=== PATIENT | male | born 1940 | race Caucasian/White ===

== ENCOUNTER 2020-07-12 12:48 | Emergency (ER) | payer MEDICARE, SELFPAY ==
[2020-07-12 13:01] VITALS: BP 167/68; PULSE 85; RESP 18; TEMP 36.7; O2SAT 98; BMI 23.5
--- NOTE | 2020-07-12 13:10 | CT_ITS ---
EXAMINATION CT CERVICAL SPINE WITHOUT IV CONTRAST CLINICAL INFORMATION: 80-year-old male patient with back pain. COMPARISON: None. TECHNIQUE: Multidetector helical CT acquisition of the cervical spine was obtained without IV contrast. Multiplanar reformats were acquired and utilized for image interpretation. This CT examination was performed using dose optimization techniques as appropriate, variously including the following: *Automated exposure control *Adjustment of mA and/or kV according to patient size (this includes techniques or standardized protocols for targeted exams where dose is matched to indication/reason for exam; i.e. extremities or head) *Use of iterative reconstruction technique DLP: 352 mGy-cm. FINDINGS: There is mild retrolisthesis of the vertebral body of C5 and C6 and C6 and C7. Significant degenerative disc disease is present at the levels of C4-C5 and C5-C6 with juxta-articular sclerotic endplates and marginal spur formation. Significant posterior spurs are seen the levels of C4-C5 C5-C6. There is an endplate depression fracture involving the anterior superior endplate of the vertebral body at T2, of unknown age. Facet arthropathy is present at the levels from C4-T1. Degenerative changes of the uncovertebral joints are particularly advanced from the levels of C5-C7. There is no acute fracture and there is no acute subluxation. The craniocervical and atlantoaxial articulations are normal. There is no prevertebral soft tissue swelling. Calcific plaques are present at the levels of both carotid artery bifurcations. No other significant soft tissue abnormality within the neck. There is bilateral apical fibrocalcific thickening and increased interstitial opacities in the lung apices right greater than left. CT/CT cervical spine wo con IMPRESSION: 1. Significant cervical spondylosis and degenerative disc disease as described. 2. Partial compression fracture involving the vertebral body at T2, unknown age. 3. Due to the posterior osteophytes, there is potential relative spinal stenosis at C5-C6.
[2020-07-12 13:27] LABS: Basophils Percent Auto 0.3 % (0-2); Eosinophils Absolute Auto 0.1 X10*3/uL (0.0-0.4); Eosinophils Percent Auto 1.5 % (0-4); Hematocrit 35.5 % (42-52); Hemoglobin 11.5 g/dl (14.0-18.0); Imm Gran Abs Auto 0.02 X10*3/uL (0.00-0.03); Imm Gran Pct Auto 0.3 % (0.0-0.4); Lymphocytes Absolute Auto 1.3 X10*3/uL (1.2-4.9); Lymphocytes Percent Auto 16.1 % (20-40); Mean Corpuscular HGB Conc 32.4 g/dl (31.0-36.0); Mean Corpuscular Volume 89.4 fL (80-98); Mean Platelet Volume 9.4 fL (9.4-12.4); Monocytes Absolute Auto 0.8 X10*3/uL (0.1-1.2); Monocytes Percent Auto 10.3 % (2-11); Neutrophils Absolute Auto 5.7 X10*3/uL (2.0-8.3); Neutrophils Percent Auto 71.5 % (45-73); Platelet Count 217 X10*3/uL (160-400); Red Blood Count 3.97 X10*6/uL (4.60-5.80); Red Cell Distribution Width 14.1 % (11.0-16.0)
[2020-07-12 13:28] LABS: MANUAL DIFF FLAG NO
[2020-07-12 13:32] LABS: INTERNATIONAL NORM RATIO 1.1 (0.9-1.1); Prothrombin Time 12.8 SEC (10.8-13.0)
[2020-07-12 13:34] LABS: Partial Thromboplastin Time 36.9 SEC (24.1-38.0)
--- NOTE | 2020-07-12 13:36 | ED_ITS ---
HPI - Back Pain/Injury General Chief Complaint: Back Pain/Injury Stated Complaint: back pain Time Seen by Provider: 07/12/20 13:09 Source: patient Mode of arrival: ambulatory Limitations: no limitations History of Present Illness HPI Narrative: 80-year-old male presenting ambulatory via triage with past medical history significant for prostate CA status post radiation, T12 compression fracture status post ? Vertebroplasty presents today with complaint of low back pain ongoing for past 1 and half week pain is positional and hurts when he gets out of bed and does certain activities. Denies any fever or chills. No headache. No lower extremity weakness. He does report he has chronic prostate problems and sometimes will have slight difficulty with urination but no discharge. No rectal pain. He did call his spine doctor as [facility] that an appointment formed for August 01 however given the continued pain he came here. Related Data Previous Rx's Medication Instructions Recorded levofloxacin 500 mg PO DAILY #10 tab 07/12/20 lidocaine 1 patch TOPICAL Q24H PRN #10 ea 07/12/20 naproxen 500 mg PO BID PRN #10 tab 07/12/20 Allergies Allergy/AdvReac Type Severity Reaction Status Date / Time No Known Allergies Allergy Unverified 05/04/20 19:32 [No Known Allergies*] Review of Systems Review of Systems: Constitutional: No Weight loss, No Fever, No Chills, No Night Sweats, No Fatigue, No Malaise ENT/Mouth: No Hearing loss, No Ear Pain, No Nasal Congestion, No Sinus Pain, No Hoarseness, No sore throat, No Rhinorrhea, No Swallowing Difficulty Eyes: No Eye Pain, No Swelling, No Redness, No Foreign Body, No Discharge, No Vision Changes Cardiovascular: No Chest Pain, No SOB, No Dyspnea on Exertion, No Orthopnea, No Edema, No Palpitations Respiratory: No Cough, No Sputum, No Wheezing, No Smoke Exposure, No Dyspnea Gastrointestinal: No Nausea, No Vomiting, No Diarrhea, No Constipation, No abdominal Pain, No Hematochezia, No Melena Genitourinary: no irregular bleeding, No Dysuria, No Urinary Frequency, No Hematuria, No Urinary Incontinence Musculoskeletal: No joint pain, No Myalgias, No Joint Swelling, + back pain Skin: No Skin Lesions, No rash Neuro: No Weakness, No Numbness, No Paresthesias, No Loss of Consciousness, No Dizziness, No Headache Psych: No Anxiety/Panic, No Depression, No SI/HI/AH/VH, No Social Issues Heme/Lymph: No Bruising, No Bleeding,No Lymphadenopathy Endocrine: No Polyuria, No Polydipsia, No Temperature Intolerance Yes all other systems are reviewed and are negative [facility] Past Medical History Medical History (Updated 07/13/20 @ 00:00 by Jak Padilla) Constipation Disc herniation Nasal sinus polyp Prostate cancer Syncope Surgical History (Updated 07/12/20 @ 13:11 by Marina Pack) History of back surgery History of left hip replacement Hx of tonsillectomy Social History Social History Alcohol intake: current Alcohol intake frequency: holidays/special occasions only Alcohol type: wine Smoking Status: Former smoker Smoked in Last 30 Days: No Use of substances other than those prescribed or required for medical reasons: No Advance Directives: No Advance Directives Information Provided: Yes Physical Exam Vital Signs: Vital Signs: Last Vital Signs Temp 98.2 F 07/12/20 16:40 Pulse 68 07/12/20 16:40 Resp 18 07/12/20 16:40 BP 158/82 H 07/12/20 16:40 Pulse Ox 99 07/12/20 16:40 Body Mass Index 23.5 Reviewed Const: General: cooperative and healthy appearing; No acute distress or intoxicated appearing Nutritional Appearance: average body habitus Orientation/consciousness: patient oriented x3 HENMT: Head: Yes normal to inspection Ears: hearing grossly normal bilaterally Eyes: General: appearance normal, both eyes and all related structures Visual Estrada: normal visual estrada by confrontation Neck: Neck: Yes normal visual inspection, No positive Brudzinski's sign, No positive Kernig's sign and No tender Thyroid: Thyroid normal Chest: Chest palpation & inspection: normal inspection of the chest Resp: Effort & Inspection: normal respiratory effort Cardio: Jugular venous distension: no JVD GI: Inspection: Yes normal to inspection Percussion: Yes normal to percussion Auscultation: normal bowel sounds : General: Yes no CVA tenderness Back/Spine/Pelvis: Other: Bilateral lower lumbar region paraspinal muscle tenderness. No midline, step-offs. He does have a old healed surgical lisette in the lumbar spine area. Back: no CVA tenderness Cervical Spine: No step off deformity Thoracic/Lumbar Spine: straight leg raise negative bilaterally and No tilt present Skin: General skin exam: no rashes or lesions noted Neuro: General: patient oriented x3 Extrem: General: Yes normal to inspection MDM - Back Pain/Injury MDM Narrative Medical decision making narrative: Low back pain seems to be chronic in nature. CT without any specific findings to explain this. Noted old T12 fracture. This was noted on prior study in 2019. No recent fall or injury. No sinus symptoms saddle anesthesia. Does have history of prostate CA did have some slight dysuria urine appears to be infected. No symptoms to suggest prostatitis. Patient will be given broad-spectrum antibiotic IV Levaquin and advised to foll ow-up with urology and [facility]. Patient agreeable and thankful. Pain essentially resolved after Tylenol and lidocaine patch. Out of bed ambulatory dressed himself caring a back. Differential Diagnosis Differential diagnosis: Likely strain of lumbar region; Unlikely lumbar radicul opathy, sciatica, renal colic, pyelonephritis, thoracic back pain, AAA and discitis Medical Records Attestation: I reviewed the patient's medical records. Lab Data Attestation: I reviewed the patient's lab results. Result diagrams: 07/12/20 13:21 07/12/20 13:21 Labs: Lab Results 07/12/20 07/12/20 07/12/20 Range/Units 13:21 13:21 13:21 WBC 8.0 (4.8-10.8) X10*3/uL RBC 3.97 L (4.60-5.80) X10*6/uL Hgb 11.5 L (14.0-18.0) g/dl Hct 35.5 L (42-52) % MCV 89.4 (80-98) fL MCH 29.0 (27.0-33.0) pg MCHC 32.4 (31.0-36.0) g/dl RDW 14.1 (11.0-16.0) % Plt Count 217 (160-400) X10*3/uL MPV 9.4 (9.4-12.4) fL Immature Gran % (Auto) 0.3 (0.0-0.4) % Neut % (Auto) 71.5 (45-73) % Lymph % (Auto) 16.1 L (20-40) % [place] % (Auto) 10.3 (2-11) % Eos % (Auto) 1.5 (0-4) % Baso % (Auto) 0.3 (0-2) % Lymph # (Auto) 1.3 (1.2-4.9) X10*3/uL [place] # (Auto) 0.8 (0.1-1.2) X10*3/uL Eos # (Auto) 0.1 (0.0-0.4) X10*3/uL Baso # (Auto) 0.0 (0.0-0.2) X10*3/uL Abs Immat Gran (auto) 0.02 (0.00-0.03) X10*3/uL Absolute Neuts (auto) 5.7 (2.0-8.3) X10*3/uL Absolute Nucleated RBC 0.000 (0.0-0.012) X10*3/uL Nucleated RBC % (auto) 0.0 (0.0-0.2) /100WBC PT 12.8 (10.8-13.0) SEC INR 1.1 (0.9-1.1) APTT 36.9 (24.1-38.0) SEC Sodium 135 (135-145) mmol/L Potassium 4.6 (3.3-5.1) mmol/l Chloride 103 (96-108) mmol/L Carbon Dioxide 23 (22-29) mmol/L Anion Gap 14 (12-20) BUN 28 H (9-16) mg/dL Creatinine 1.40 (0.5-1.4) mg/dL Estim Creat Clear Calc 45.5 Estimated GFR 49 Random Glucose 106 (60-115) mg/dL Calcium 8.6 (8.4-10.2) mg/dL Total Bilirubin 0.2 (0.0-1.0) mg/dL AST 24 (5-37) U/L ALT 19 (0-40) U/L Alkaline Phosphatase 82 (39-117) U/L Total Protein 7.1 (6.5-8.0) g/dL Albumin 3.7 (3.5-5.0) g/dL Urine Color Urine Appearance Urine pH (5.0-8.0) Ur Specific [place] (1.005-1.025) Urine Protein (NEG-TRACE) MG/DL Urine Glucose (UA) (NEG) MG/DL Urine Ketones (NEG) MG/DL Urine Blood (NEG) Urine Nitrite (NEG) Ur Leukocyte Esterase (NEG) Urine RBC (0) /HPF Urine WBC (0-4) /HPF Ur Squamous Epith Cells /LPF Urine Bacteria /LPF Coronavirus (PCR) (Negative) Influenza Type A (PCR) (Negative) Influenza Type B (PCR) (Negative) RSV RNA Qual (PCR) (Negative) 07/12/20 07/12/20 Range/Units 13:50 15:46 WBC (4.8-10.8) X10*3/uL RBC (4.60-5.80) X10*6/uL Hgb (14.0-18.0) g/dl Hct (42-52) % MCV (80-98) fL MCH (27.0-33.0) pg MCHC (31.0-36.0) g/dl RDW (11.0-16.0) % Plt Count (160-400) X10*3/uL MPV (9.4-12.4) fL Immature Gran % (Auto) (0.0-0.4) % Neut % (Auto) (45-73) % Lymph % (Auto) (20-40) % [place] % (Auto) (2-11) % Eos % (Auto) (0-4) % Baso % (Auto) (0-2) % Lymph # (Auto) (1.2-4.9) X10*3/uL [place] # (Auto) (0.1-1.2) X10*3/uL Eos # (Auto) (0.0-0.4) X10*3/uL Baso # (Auto) (0.0-0.2) X10*3/uL Abs Immat Gran (auto) (0.00-0.03) X10*3/uL Absolute Neuts (auto) (2.0-8.3) X10*3/uL Absolute Nucleated RBC (0.0-0.012) X10*3/uL Nucleated RBC % (auto) (0.0-0.2) /100WBC PT (10.8-13.0) SEC INR (0.9-1.1) APTT (24.1-38.0) SEC Sodium (135-145) mmol/L Potassium (3.3-5.1) mmol/l Chloride (96-108) mmol/L Carbon Dioxide (22-29) mmol/L Anion Gap (12-20) BUN (9-16) mg/dL Creatinine (0.5-1.4) mg/dL Estim Creat Clear Calc Estimated GFR Random Glucose (60-115) mg/dL Calcium (8.4-10.2) mg/dL Total Bilirubin (0.0-1.0) mg/dL AST (5-37) U/L ALT (0-40) U/L Alkaline Phosphatase (39-117) U/L Total Protein (6.5-8.0) g/dL Albumin (3.5-5.0) g/dL Urine Color YELLOW Urine Appearance TURBID Urine pH 6.0 (5.0-8.0) Ur Specific [place] 1.020 (1.005-1.025) Urine Protein TRACE (NEG-TRACE) MG/DL Urine Glucose (UA) NEG (NEG) MG/DL Urine Ketones NEG (NEG) MG/DL Urine Blood 2+ H (NEG) Urine Nitrite NEG (NEG) Ur Leukocyte Esterase 3+ H (NEG) Urine RBC 5-9 H (0) /HPF Urine WBC 76-150 H (0-4) /HPF Ur Squamous Epith Cells NONE /LPF Urine Bacteria 1+ /LPF Coronavirus (PCR) NEGATIVE (Negative) Influenza Type A (PCR) NEGATIVE (Negative) Influenza Type B (PCR) NEGATIVE (Negative) RSV RNA Qual (PCR) NEGATIVE (Negative) Discharge Plan Discharge Clinical Impression: Strain of lumbar region, Acute UTI (urinary tract infection) Patient Disposition: Home, Self-Care Instructions: Acute Low Back Pain (ED), Urinary Tract Infection in Older Adults (ED) Prescriptions: New lidocaine 4 % adhesive patch,medicated 1 patch topical Q24H PRN (Reason: pain) Qty: 10 RF: 0 levofloxacin 500 mg tablet 500 mg PO DAILY Qty: 10 RF: 0 naproxen 500 mg tablet 500 mg PO BID PRN (Reason: pain) Qty: 10 RF: 0 Referrals: Tiana Newman MD [Primary Care Provider] - 1 week iVshal Tadeo III, MD [Physician] - 1 week Interventions: ED Discharge Assessment Last Done: 07/12/20 17:14 Discharge Date/Time: 07/12/20 17:15
[2020-07-12] MEDS: Acetaminophen 325 MG TABLET 975 MG PO (13:44)
[2020-07-12] MEDS: Lidocaine 4 % Patch ADH..PATCH 1 PATCH TRANSDERMA (13:44)
[2020-07-12] MEDS: 0.9 % Sodium Chloride 500 ML 1000 ML IV (13:44)
--- NOTE | 2020-07-12 13:58 | PC.NURSE ---
iv inserted, labs drawn, pt medicated per order, ivf running per order, covid swab performed, will continue to monitor.
[2020-07-12 14:36] LABS: Alanine Aminotransferase 19 U/L (0-40); Albumin Level 3.7 g/dL (3.5-5.0); Alkaline Phosphatase 82 U/L (39-117); Anion Gap 14 (12-20); Aspartate Amino Transferase 24 U/L (5-37); Bilirubin Total 0.2 mg/dL (0.0-1.0); Blood Urea Nitrogen 28 mg/dL (9-16); Calcium 8.6 mg/dL (8.4-10.2); Carbon Dioxide 23 mmol/L (22-29); Chloride 103 mmol/L (96-108); Creatinine Clr Calc Pharmacy 45.5; Estimated Glomerular Filt Rate 49; Glucose Random 106 mg/dL (60-115); Potassium 4.6 mmol/l (3.3-5.1); Sodium 135 mmol/L (135-145); Total Protein 7.1 g/dL (6.5-8.0)
[2020-07-12 14:40] LABS: Influenza A PCR NEGATIVE (Negative); Influenza B PCR NEGATIVE (Negative); Resp Syncy Virus RNA Qual PCR NEGATIVE (Negative); SARS COV2 PCR INHOUSE NEGATIVE (Negative)
--- NOTE | 2020-07-12 14:41 | PC.NURSE ---
pt aware to ring to provide urine sample as he is unable to urinate at this time
--- NOTE | 2020-07-12 15:31 | CT_ITS ---
EXAMINATION: CT ABDOMEN AND PELVIS WITHOUT CONTRAST CLINICAL INFORMATION: Abdominal pain and back pain. History of Prostate and bladder cancer COMPARISON: Previous KUB June [address] scan of the abdomen and pelvis most recent May 2008 TECHNIQUE: Multidetector volumetric imaging was performed from the superior aspect of the liver through the pubic symphysis. Sagittal and coronal reformatted images were obtained on the technologist's workstation. This CT examination was performed using dose optimization techniques as appropriate, variously including the following: *Automated exposure control *Adjustment of mA and/or kV according to patient size (this includes techniques or standardized protocols for targeted exams where dose is matched to indication/reason for exam; i.e. extremities or head) *Use of iterative reconstruction technique DLP: 567 mGy-cm FINDINGS: LUNG BASES: There are increased interstitial markings seen at the lung bases. LIVER, GALLBLADDER, AND BILIARY TREE: The liver is normal in size, shape, and attenuation. No focal hepatic lesion or biliary ductal dilatation is present. The gallbladder is unremarkable with no evidence of radiopaque gallstones, gallbladder wall thickening, or obvious pericholecystic inflammatory changes. PANCREAS: Unremarkable. SPLEEN: Unremarkable. ADRENAL GLANDS: Unremarkable. KIDNEYS AND URETERS: The kidneys are normal in size, shape, and attenuation. No hydronephrosis, hydroureter, or calculi seen. No perinephric stranding. BLADDER: Not well visualized due to artifact from left hip replacement. There is bladder wall thickening. GASTROINTESTINAL TRACT: There is stool seen throughout the colon suggestive of constipation. Small and large bowel are otherwise unremarkable. The appendix is unremarkable. There is an esophageal hernia. ABDOMINAL WALL: There is a right inguinal hernia containing fat. There is a small umbilical hernia containing fat. LYMPH NODES: There are no enlarged lymph nodes. There is no ascites. VASCULAR: There is evidence of atherosclerotic disease. There is ectasia of the distal right common iliac artery measuring 1 6 cm. PELVIC VISCERA: Not well visualized due to artifact from left hip replacement. There are radiation seeds in the prostate gland. OSSEOUS STRUCTURES: There is a left hip replacement that appears unchanged.. There are degenerative changes of the spine. There are degenerative changes of the right hip joint. There is a severe T12 vertebral body compression fracture. This does not appear acute but is new in the interval from [address]/CT abdomen pelvis wo con IMPRESSION: Prostate gland and bladder not well evaluated due to artifact from left hip replacement. There is diffuse bladder wall thickening. There are radiation seeds in the prostate gland. Stool throughout the colon suggestive of constipation. Moderate esophageal hernia. 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 T12 vertebral body compression fracture. This is new in the interval from 2018 exam but does not appear acute.
--- NOTE | 2020-07-12 15:35 | PC.NURSE ---
urine obtained, pt transported to ct scan
--- NOTE | 2020-07-12 15:49 | PC.NURSE ---
pt returned from ct scan
[2020-07-12 15:55] LABS: Glucose Urine UA NEG (NEG); Leukocyte Esterase Urine 3+ (NEG); Nitrite Urine NEG (NEG); Urine Blood 2+ (NEG); Urine Ketones NEG (NEG); Urine Protein TRACE MG/DL (NEG-TRACE)
[2020-07-12 15:59] LABS: Appearance Urine TURBID; Color Urine YELLOW
[2020-07-12 16:13] LABS: Bacteria Urine 1+ /LPF
[2020-07-12 16:40] VITALS: BP 158/82; PULSE 68; RESP 18; TEMP 36.8; O2SAT 99
== END 2020-07-12 17:15 | disposition home or self-care (01) ==
PROVIDERS: Nurse Practitioner Primary Care; Emergency Provider Internal Medicine; PCP Internal Medicine
DX: S39.012A Strain of muscle, fascia and tendon of lower back, initial encounter (principal); N39.0 Urinary tract infection, site not specified; R05 Cough; M54.2 Cervicalgia; X58.XXXA Exposure to other specified factors, initial encounter; Y93.9 Activity, unspecified; Y92.9 Unspecified place or not applicable; Y99.9 Unspecified external cause status; Z20.828 Contact with and (suspected) exposure to other viral communicable diseases; Z79.899 Other long term (current) drug therapy; Z87.891 Personal history of nicotine dependence
CPT/HCPCS: 0241U; 36415; 72125; 74176; 80053; 81001; 85025; 85610; 85730; 87086; 99284

== ENCOUNTER 2020-07-17 09:55 | Emergency (ER) | payer MEDICARE, SELFPAY ==
--- NOTE | 2020-07-17 11:19 | XR_ITS ---
EXAMINATION: XR ABDOMEN KUB CLINICAL INDICATION: Constipation COMPARISON: CT abdomen and pelvis noncontrast 07/12/2020 TECHNIQUE: AP x2 views of the abdomen. FINDINGS: There is moderate stool seen right, transverse, and proximal to mid descending colon. There is no rectal fecal impaction. No gaseous dilatation of bowel or abnormal collections of gas. The visualized lung bases are clear. There are degenerative changes lumbosacral spine. Old T12 vertebral compression again seen and left hip replacement. XR/XR abdomen 1V IMPRESSION: 1. Moderate stool right, transverse, and proximal to mid descending colon. 2. No gaseous dilatation of bowel. No rectal fecal impaction.
[2020-07-17 11:39] LABS: Glucose Urine UA NEG (NEG); Leukocyte Esterase Urine NEG (NEG); Nitrite Urine NEG (NEG); PH 6.5 (5.0-8.0); Urine Blood 1+ (NEG); Urine Ketones NEG (NEG); Urine Protein NEG (NEG-TRACE)
[2020-07-17 11:41] LABS: Appearance Urine HAZY; Color Urine YELLOW
[2020-07-17 11:48] LABS: Squamous Epithelial Cell Urine 1+ /LPF
[2020-07-17 12:20] VITALS: BP 144/97; PULSE 67; RESP 16; TEMP 36.5; O2SAT 100; BMI 24.3
--- NOTE | 2020-07-17 12:22 | ED_ITS ---
HPI - General Adult General Chief complaint: Back Pain/Injury Stated complaint: BACK PAIN,MED REACTION Time Seen by Provider: 07/17/20 11:10 Source: patient Mode of arrival: ambulatory Limitations: no limitations History of Present Illness HPI narrative: Patient seen on the 12 of July for back pain which seem chronic in nature he had a workup that was consistent with a UTI he does have history of prostate CA status post radiation at [facility] October of this year was last treatment and had a resection of a bladder mass, history of T12 compression fracture. During last visit he was given Levaquin for his antibiotics lidocaine patch naproxen for his back pain His back pain is essentially well managed and no complaints related today however he has been taking the antibiotics for his UTIs given him nausea in addition he reports that he has been constipated which she has a history of ever since having chemo. There is no nausea or vomiting. No abdominal pain. No flank pain. No fever chills. Onset (ago): day(s) Relieving factors: none Treatments prior to arrival: none Related Data Previous Rx's Medication Instructions Recorded lidocaine 1 patch TOPICAL Q24H PRN #10 ea 07/12/20 naproxen 500 mg PO BID PRN #10 tab 07/12/20 cefdinir 300 mg PO Q12H #14 cap 07/17/20 docusate sodium [Colace] 100 mg PO DAILY #30 cap 07/17/20 polyethylene glycol 3350 [Miralax] 17 g PO BID PRN #238 g 07/17/20 Allergies Allergy/AdvReac Type Severity Reaction Status Date / Time No Known Allergies Allergy Unverified 05/04/20 19:32 [No Known Allergies*] Review of Systems 2 Review of Systems: Constitutional: No Weight loss, No Fever, No Chills, No Night Sweats, No Fatigue, No Malaise ENT/Mouth: No Hearing loss, No Ear Pain, No Nasal Congestion, No Sinus Pain, No Hoarseness Eyes: No Eye Pain, No Swelling, No Redness, No Foreign Body, No Discharge, No Vision Changes Cardiovascular: No Chest Pain, No SOB, No Dyspnea on Exertion, No Orthopnea, No Edema, No Palpitations Respiratory: No Cough, No Sputum, No Wheezing, No Smoke Exposure, No Dyspnea Gastrointestinal: As noted in HPI, no bleeding Genitourinary: No Dysuria, No Urinary Frequency, No Hematuria Musculoskeletal: No joint pain, No Myalgias, No Joint Swelling Skin: No Skin Lesions, No rash Neuro: No Weakness, No Numbness, No Paresthesias, No Loss of Consciousness, No Dizziness, No Headache Psych: No Social Issues Heme/Lymph: No Bruising, No Bleeding,No Lymphadenopathy Endocrine: No Temperature Intolerance Yes all other systems are reviewed and are negative [facility] Past Medical History Medical History (Updated 07/18/20 @ 00:00 by Jak Padilla) Constipation Disc herniation Nasal sinus polyp Prostate cancer Syncope Surgical History History of back surgery History of left hip replacement Hx of tonsillectomy Social History Social History Alcohol intake: current Alcohol intake frequency: holidays/special occasions only Alcohol type: wine Smoking Status: Former smoker Physical Exam Vital Signs: Vital Signs: Last Vital Signs Temp 97.7 F 07/17/20 12:20 Pulse 67 07/17/20 12:20 Resp 16 07/17/20 12:20 BP 144/97 H 07/17/20 12:20 Pulse Ox 100 07/17/20 12:20 Body Mass Index 24.3 Reviewed Const: General: cooperative and healthy appearing; No acute distress or intoxicated appearing Nutritional Appearance: average body habitus Orientation/consciousness: patient oriented x3 Chest: Chest palpation & inspection: normal inspection of the chest Resp: Effort & Inspection: normal respiratory effort Cardio: Jugular venous distension: no JVD GI: Inspection: Yes normal to inspection Percussion: Yes normal to percussion Auscultation: normal bowel sounds : General: Yes no CVA tenderness Back/Spine/Pelvis: Back: no CVA tenderness Skin: General skin exam: no rashes or lesions noted Neuro: General: patient oriented x3 Extrem: General: Yes normal to inspection Medical Decision Making MDM Narrative Medical decision making narrative: Will stop Levaquin started on Ceftin for additional 7 days b.i.d.. Recent culture for 2nd culture. Will follow up with Urology. Home care return instructions provided. Whilst on bowel regimen for constipation. Exam benign. Vitals stable. Thankful for care will follow-up as instructed. Stable for discharge. Lab Data Lab results reviewed: Yes I reviewed the patient's lab results. Lab results narrative: Urine culture from previous visit reviewed grew out Streptococcus species meds culture no specific sensitivity. Labs: Lab Results 07/17/20 Range/Units 11:32 Urine Color YELLOW Urine Appearance HAZY Urine pH 6.5 (5.0-8.0) Ur Specific [place] 1.020 (1.005-1.025) Urine Protein NEG (NEG-TRACE) MG/DL Urine Glucose (UA) NEG (NEG) MG/DL Urine Ketones NEG (NEG) MG/DL Urine Blood 1+ H (NEG) Urine Nitrite NEG (NEG) Ur Leukocyte Esterase NEG (NEG) Urine RBC 5-9 H (0) /HPF Urine WBC 5-9 H (0-4) /HPF Ur Squamous Epith Cells 1+ /LPF Urine Bacteria NONE /LPF Discharge Plan Discharge Clinical Impression: Constipation, Adverse effect of antibiotic, Urinary tract infection Patient Disposition: Home, Self-Care Instructions: Constipation (ED), Urinary Tract Infection in Men (ED) Prescriptions: New cefdinir 300 mg capsule 300 mg PO Q12H Qty: 14 RF: 0 polyethylene glycol 3350 [Miralax] 17 gram/dose powder 17 g PO BID PRN (Reason: constipation) Qty: 238 RF: 1 docusate sodium [Colace] 100 mg capsule 100 mg PO DAILY Qty: 30 RF: 0 Discontinued levofloxacin 500 mg tablet 500 mg PO DAILY Qty: 10 RF: 0 No Action lidocaine 4 % adhesive patch,medicated 1 patch topical Q24H PRN (Reason: pain) Qty: 10 RF: 0 naproxen 500 mg tablet 500 mg PO BID PRN (Reason: pain) Qty: 10 RF: 0 Referrals: Tiana Newman MD [Primary Care Provider] - 1 week Vishal Tadeo III, MD [Physician] - 2 days Interventions: ED Discharge Assessment Last Done: 07/17/20 13:11 Discharge Date/Time: 07/17/20 13:12
== END 2020-07-17 13:12 | disposition home or self-care (01) ==
PROVIDERS: Nurse Practitioner Primary Care; Emergency Provider Internal Medicine; PCP Internal Medicine
DX: N39.0 Urinary tract infection, site not specified (principal); K59.00 Constipation, unspecified; T36.95XA Adverse effect of unspecified systemic antibiotic, initial encounter; Y92.9 Unspecified place or not applicable; Z79.899 Other long term (current) drug therapy; Z87.891 Personal history of nicotine dependence
CPT/HCPCS: 74018; 81001; 87086; 99283

== ENCOUNTER → 2020-07-25 10:51 | Outpatient (BNVA) | payer MEDICARE, SELFPAY | PROVIDERS: PCP Internal Medicine; Visit Provider Urology | DX: N40.1 Benign prostatic hyperplasia with lower urinary tract symptoms (principal); R39.14 Feeling of incomplete bladder emptying; N39.0 Urinary tract infection, site not specified; C61 Malignant neoplasm of prostate | CPT/HCPCS: 81003; 99212 ==

== ENCOUNTER 2020-08-08 15:39 | Inpatient (IN) | payer MEDICARE, SELFPAY ==
[2020-08-08 16:32] VITALS: BP 145/67; PULSE 79; RESP 16; TEMP 36.7; O2SAT 98
[2020-08-08 20:13] VITALS: BP 130/61; PULSE 77; RESP 17; TEMP 37.6; O2SAT 100
[2020-08-08 20:40] LABS: Basophils Percent Auto 0.2 % (0-2); Eosinophils Percent Auto 0.3 % (0-4); Hemoglobin 8.1 g/dl (14.0-18.0); Imm Gran Abs Auto 0.03 X10*3/uL (0.00-0.03); Imm Gran Pct Auto 0.3 % (0.0-0.4); Lymphocytes Absolute Auto 1.5 X10*3/uL (1.2-4.9); Lymphocytes Percent Auto 14.6 % (20-40); MANUAL DIFF FLAG NO; Mean Corpuscular HGB Conc 32.4 g/dl (31.0-36.0); Mean Corpuscular Hemoglobin 29.5 pg (27.0-33.0); Mean Corpuscular Volume 90.9 fL (80-98); Monocytes Percent Auto 10.2 % (2-11); Neutrophils Absolute Auto 7.5 X10*3/uL (2.0-8.3); Neutrophils Percent Auto 74.4 % (45-73); Platelet Count 200 X10*3/uL (160-400); Red Blood Count 2.75 X10*6/uL (4.60-5.80); Red Cell Distribution Width 13.9 % (11.0-16.0); White Blood Count 10.1 X10*3/uL (4.8-10.8)
[2020-08-08 21:01] LABS: Alanine Aminotransferase 20 U/L (0-40); Albumin Level 3.6 g/dL (3.5-5.0); Alkaline Phosphatase 85 U/L (39-117); Anion Gap 11 (12-20); Aspartate Amino Transferase 24 U/L (5-37); Bilirubin Total 0.3 mg/dL (0.0-1.0); Blood Urea Nitrogen 33 mg/dL (9-16); Calcium 8.3 mg/dL (8.4-10.2); Carbon Dioxide 24 mmol/L (22-29); Chloride 105 mmol/L (96-108); Creatinine Clr Calc Pharmacy 51.7; Estimated Glomerular Filt Rate > 60; Glucose Random 106 mg/dL (60-115); Potassium 4.3 mmol/l (3.3-5.1); Sodium 136 mmol/L (135-145); Total Protein 6.5 g/dL (6.5-8.0)
[2020-08-08 21:07] LABS: Troponin-I High Sensitivity 8.5 ng/L (<3.5-35.0)
--- NOTE | 2020-08-08 21:20 | ED_ITS ---
HPI - General Adult General Chief complaint: Weakness Stated complaint: fell this morning Time Seen by Provider: 08/08/20 21:19 Source: patient Mode of arrival: ambulatory Limitations: no limitations History of Present Illness HPI narrative: Patient been feeling weak for last 3 weeks today while standing he felt dizzy lightheaded and almost passed out slumped down to the floor without any significant injury. Patient denies any chest pain or palpitation he noticed his stools are black for last few weeks has lost about 30 lb in last few months no abdominal pain loss of appetite feels weak all the time, has last colonoscopy which was normal patient has chronic back pain and take Tylenol for that no history of peptic ulcer disease no history of anemia in the past. Patient does have history of recent diagnosis of prostate cancer which is localized and been treated with radiation treatment and is stable Onset (ago): hour(s) Severity: mild Related Data Home Medications Medication Instructions Recorded Confirmed Calcium 500 08/08/20 multivitamin 08/08/20 tamsulosin 0.4 mg PO Q OTHER DAY 08/08/20 Allergies Allergy/AdvReac Type Severity Reaction Status Date / Time No Known Allergies Allergy Verified 07/25/20 11:37 [No Known Allergies*] Review of Systems Review of Systems: Constitutional : + Weight loss, No Fever, No Chills ENT/Mouth : No sore throat, No Rhinorrhea Eyes: No Eye Pain, No Swelling Cardiovascular : No Chest Pain, no Dyspnea on Exertion, No Orthopnea, No Edema, No Palpitations, no SOB Respiratory : No Cough, No Sputum Gastrointestinal : no Nausea, No Vomiting, No Diarrhea, No abdominal Pain, No Hematochezia, Genitourinary : No Dysuria, No Urinary Frequency Musculoskeletal : No joint pain, No Myalgias, No Joint Swelling Skin : No Skin Lesions, No rash Neuro : +Weakness, No Numbness, + Dizziness, No Headache Psych : No Anxiety/Panic, No Depression Heme/Lymph: No Bruising, No Lymphadenopathy Endocrine : No Polyuria, No Polydipsia All other systems reviewed and are negative PMFSH Past Medical History Medical History Constipation Disc herniation Nasal sinus polyp Prostate cancer Syncope Surgical History History of back surgery History of left hip replacement Hx of tonsillectomy Social History Social History Alcohol intake: never Smoking Status: Former smoker Smoked in Last 30 Days: No Use of substances other than those prescribed or required for medical reasons: No Advance Directives: No Physical Exam Vital Signs: Vital Signs: Last Vital Signs Temp 98.7 F 08/09/20 02:54 Pulse 73 08/09/20 02:54 Resp 16 08/09/20 02:54 BP 114/73 08/09/20 02:54 Pulse Ox 100 08/09/20 02:54 Body Mass Index 20.0 Appearance: Alert. Oriented X3. No acute distress. Eyes: Pupils equal, round and reactive to light. Pallor + no icterus ENT: Pharynx normal. Neck: Normal inspection. Neck supple. CVS: Normal heart rate and rhythm. Pulses normal. Respiratory: No respiratory distress. Breath sounds normal. Abdomen: Soft and nontender. Bowel sounds are present, no mass palpable, no CVA tenderness Rectal: Normal tone nontender black stool guaiac positive Skin: Skin warm and dry. Pale, Normal skin turgor. Extremities: No lower extremity edema. Neuro: Oriented X 3. No motor deficit. No sensory deficit. Medical Decision Making MDM Narrative Medical decision making narrative: Patient with 3 weeks of weakness workup s howed melena with hemoglobin dropped to 8.1 from 11.5 etiology of GI bleed is not clear patient denies any abdominal pain or upper GI symptoms will give him Protonix for now, blood transfusion and GI consult patient previous colonoscopy was normal Lab Data Lab results reviewed: Yes I reviewed the patient's lab results. Result diagrams: 08/08/20 20:30 08/08/20 20:30 Labs: Lab Results 08/08/20 08/08/20 08/08/20 Range/Units 20:30 20:30 20:30 WBC 10.1 (4.8-10.8) X10*3/uL RBC 2.75 L D (4.60-5.80) X10*6/uL Hgb 8.1 L D (14.0-18.0) g/dl Hct 25.0 L D (42-52) % MCV 90.9 (80-98) fL MCH 29.5 (27.0-33.0) pg MCHC 32.4 (31.0-36.0) g/dl RDW 13.9 (11.0-16.0) % Plt Count 200 (160-400) X10*3/uL MPV 10.0 (9.4-12.4) fL Immature Gran % (Auto) 0.3 (0.0-0.4) % Neut % (Auto) 74.4 H (45-73) % Lymph % (Auto) 14.6 L (20-40) % [place] % (Auto) 10.2 (2-11) % Eos % (Auto) 0.3 (0-4) % Baso % (Auto) 0.2 (0-2) % Lymph # (Auto) 1.5 (1.2-4.9) X10*3/uL [place] # (Auto) 1.0 (0.1-1.2) X10*3/uL Eos # (Auto) 0.0 (0.0-0.4) X10*3/uL Baso # (Auto) 0.0 (0.0-0.2) X10*3/uL Abs Immat Gran (auto) 0.03 (0.00-0.03) X10*3/uL Absolute Neuts (auto) 7.5 (2.0-8.3) X10*3/uL Absolute Nucleated RBC 0.000 (0.0-0.012) X10*3/uL Nucleated RBC % (auto) 0.0 (0.0-0.2) /100WBC PT 13.2 H (10.8-13.0) SEC INR 1.1 (0.9-1.1) APTT 34.4 (24.1-38.0) SEC Hold Blue Top SEE NOTE Sodium 136 (135-145) mmol/L Potassium 4.3 (3.3-5.1) mmol/l Chloride 105 (96-108) mmol/L Carbon Dioxide 24 (22-29) mmol/L Anion Gap 11 L (12-20) BUN 33 H (9-16) mg/dL Creatinine 1.04 (0.5-1.4) mg/dL Estim Creat Clear Calc 51.7 Estimated GFR > 60 Random Glucose 106 (60-115) mg/dL Calcium 8.3 L (8.4-10.2) mg/dL Total Bilirubin 0.3 (0.0-1.0) mg/dL AST 24 (5-37) U/L ALT 20 (0-40) U/L Alkaline Phosphatase 85 (39-117) U/L Troponin I High Sens (<3.5-35.0) ng/L Total Protein 6.5 (6.5-8.0) g/dL Albumin 3.6 (3.5-5.0) g/dL Stool Occult Blood (NEG) Coronavirus (PCR) (Negative) Influenza Type A (PCR) (Negative) Influenza Type B (PCR) (Negative) RSV RNA Qual (PCR) (Negative) Blood Type Antibody Screen Crossmatch 08/08/20 08/08/20 08/08/20 Range/Units 20:30 21:37 21:44 WBC (4.8-10.8) X10*3/uL RBC (4.60-5.80) X10*6/uL Hgb (14.0-18.0) g/dl Hct (42-52) % MCV (80-98) fL MCH (27.0-33.0) pg MCHC (31.0-36.0) g/dl RDW (11.0-16.0) % Plt Count (160-400) X10*3/uL MPV (9.4-12.4) fL Immature Gran % (Auto) (0.0-0.4) % Neut % (Auto) (45-73) % Lymph % (Auto) (20-40) % [place] % (Auto) (2-11) % Eos % (Auto) (0-4) % Baso % (Auto) (0-2) % Lymph # (Auto) (1.2-4.9) X10*3/uL [place] # (Auto) (0.1-1.2) X10*3/uL Eos # (Auto) (0.0-0.4) X10*3/uL Baso # (Auto) (0.0-0.2) X10*3/uL Abs Immat Gran (auto) (0.00-0.03) X10*3/uL Absolute Neuts (auto) (2.0-8.3) X10*3/uL Absolute Nucleated RBC (0.0-0.012) X10*3/uL Nucleated RBC % (auto) (0.0-0.2) /100WBC PT (10.8-13.0) SEC INR (0.9-1.1) APTT (24.1-38.0) SEC Hold Blue Top Sodium (135-145) mmol/L Potassium (3.3-5.1) mmol/l Chloride (96-108) mmol/L Carbon Dioxide (22-29) mmol/L Anion Gap (12-20) BUN (9-16) mg/dL Creatinine (0.5-1.4) mg/dL Estim Creat Clear Calc Estimated GFR Random Glucose (60-115) mg/dL Calcium (8.4-10.2) mg/dL Total Bilirubin (0.0-1.0) mg/dL AST (5-37) U/L ALT (0-40) U/L Alkaline Phosphatase (39-117) U/L Troponin I High Sens 8.5 (<3.5-35.0) ng/L Total Protein (6.5-8.0) g/dL Albumin (3.5-5.0) g/dL Stool Occult Blood POS (NEG) Coronavirus (PCR) (Negative) Influenza Type A (PCR) (Negative) Influenza Type B (PCR) (Negative) RSV RNA Qual (PCR) (Negative) Blood Type A Positive Antibody Screen NEGATIVE Crossmatch See Detail 08/08/20 Range/Units 23:40 WBC (4.8-10.8) X10*3/uL RBC (4.60-5.80) X10*6/uL Hgb (14.0-18.0) g/dl Hct (42-52) % MCV (80-98) fL MCH (27.0-33.0) pg MCHC (31.0-36.0) g/dl RDW (11.0-16.0) % Plt Count (160-400) X10*3/uL MPV (9.4-12.4) fL Immature Gran % (Auto) (0.0-0.4) % Neut % (Auto) (45-73) % Lymph % (Auto) (20-40) % [place] % (Auto) (2-11) % Eos % (Auto) (0-4) % Baso % (Auto) (0-2) % Lymph # (Auto) (1.2-4.9) X10*3/uL [place] # (Auto) (0.1-1.2) X10*3/uL Eos # (Auto) (0.0-0.4) X10*3/uL Baso # (Auto) (0.0-0.2) X10*3/uL Abs Immat Gran (auto) (0.00-0.03) X10*3/uL Absolute Neuts (auto) (2.0-8.3) X10*3/uL Absolute Nucleated RBC (0.0-0.012) X10*3/uL Nucleated RBC % (auto) (0.0-0.2) /100WBC PT (10.8-13.0) SEC INR (0.9-1.1) APTT (24.1-38.0) SEC Hold Blue Top Sodium (135-145) mmol/L Potassium (3.3-5.1) mmol/l Chloride (96-108) mmol/L Carbon Dioxide (22-29) mmol/L Anion Gap (12-20) BUN (9-16) mg/dL Creatinine (0.5-1.4) mg/dL Estim Creat Clear Calc Estimated GFR Random Glucose (60-115) mg/dL Calcium (8.4-10.2) mg/dL Total Bilirubin (0.0-1.0) mg/dL AST (5-37) U/L ALT (0-40) U/L Alkaline Phosphatase (39-117) U/L Troponin I High Sens (<3.5-35.0) ng/L Total Protein (6.5-8.0) g/dL Albumin (3.5-5.0) g/dL Stool Occult Blood (NEG) Coronavirus (PCR) NEGATIVE (Negative) Influenza Type A (PCR) NEGATIVE (Negative) Influenza Type B (PCR) NEGATIVE (Negative) RSV RNA Qual (PCR) NEGATIVE (Negative) Blood Type Antibody Screen Crossmatch Discharge Plan Discharge Clinical Impression: GI (gastrointestinal bleed) Qualifiers: GI bleed type/associated pathology: unspecified gastrointestinal hemorrhage type Qualified Code(s): K92.2 - Gastrointestinal hemorrhage, unspecified Anemia Qualifiers: Anemia type: other cause Other causes of anemia: other cause, not classified Qu alified Code(s): D64.89 - Other specified anemias Patient Disposition: Admitted As Inpatient
[2020-08-08 21:57] LABS: OBS Int Ctl Valid YES; OBS1 POS (NEG)
[2020-08-08 21:57] LABS: INTERNATIONAL NORM RATIO 1.1 (0.9-1.1); Prothrombin Time 13.2 SEC (10.8-13.0)
[2020-08-08 21:59] LABS: Partial Thromboplastin Time 34.4 SEC (24.1-38.0)
[2020-08-08] MEDS: Pantoprazole Sodium 40 MG/10 ML VIAL 80 MG IVPUSH (22:27)
[2020-08-09] VITALS (20 sets, daily range): BP systolic 110–151; BP diastolic 41–77; PULSE 62–96; RESP 16–20; TEMP 36.4–37.1; O2SAT 95–100
[2020-08-09 00:38] LABS: Influenza A PCR NEGATIVE (Negative); Influenza B PCR NEGATIVE (Negative); Resp Syncy Virus RNA Qual PCR NEGATIVE (Negative); SARS COV2 PCR INHOUSE NEGATIVE (Negative)
--- NOTE | 2020-08-09 01:22 | PC.NURSE ---
report from racheal mcghee at 23:00. pt need 1 unit rbc. pt needed covid swab and med rec completed. pt has enjoyed 2 ham sandwiches and ice water. blood transfusion just began, pt aware of signs and symptoms to be aware of, and immediately notify rn. call collado on pt's lap.
--- NOTE | 2020-08-09 05:18 | PM.IMHP ---
History of Present Illness Date of Service: 08/08/20 Chief Complaint: weakness, This is a 80-year-old male with past medical history of prostate cancer currently not under any treatment, bladder scan sirs status post TURP who presents to the hospital with complaints of generalized weakness, weight loss, loss of appetite. Patient reports that for the past 3-4 weeks has been feeling generally weak, he had 1 episode of dizziness for he fell without loss of conscious, palpitations, no hitting his head, no chest pain, no change in vision. He also complaining of losing weight over 30 lb in the past 1 month, reports loss of appetite and not eating as well as he used to. Denies any bloating, abdominal distension does ED, he also noticed black stools for the past 1-2 weeks, no bright red blood per rectum. Of note patient was here 3 weeks ago and was seen in the ED for back pain that has now improved with chiropractor and physical therapy. No abdominal pain, no nausea or vomiting, no urinary symptoms and no lower extremity edema. No numbness or tingling, no headache or change in vision. On arrival to the ED hemodynamically stable with no significant abnormal vitals Labs are significant for WBC count of 10.1, hemoglobin of 8.1 which was 11.5 on 07/12/20, hematocrit of 25, CMP significant for a sodium of 136, potassium of 4.3, BUN of 33 with a creatinine of 1.04, has stool occult positive, Of note patient had a BMI of 23 on his previous presentation to the ED in June and is now 20.1( unable to find exact weight from june) Patient will be admitted for evaluation of acute anemia Past medical history: Prostate cancer, not on any treatment at this time, bladder tumor status post TURP in 2018 Past surgical history: Hip surgery, ankle surgery, tonsillectomy Family history: Reports that he has no family at all Social history: Denies any tobacco alcohol or illicit drugs. Lives alone and ambulates independently Review of Systems Review of Systems: Yes all other systems are reviewed and are negative [facility] Medical History Constipation Disc herniation Nasal sinus polyp Prostate cancer Syncope Surgical History History of back surgery History of left hip replacement Hx of tonsillectomy Social History Alcohol intake: never Smoking Status: Former smoker Smoked in Last 30 Days: No Use of substances other than those prescribed or required for medical reasons: No Advance Directives: No Meds Allergies Allergy/AdvReac Type Severity Reaction Status Date / Time No Known Allergies Allergy Verified 07/25/20 11:37 [No Known Allergies*] Home Medications Medication Instructions Recorded Confirmed Type Calcium 500 08/08/20 History multivitamin 08/08/20 History tamsulosin 0.4 mg PO Q OTHER DAY 08/08/20 History Physical Exam Vital Signs and Narrative: Vital Signs: Last Vital Signs Temp 98.7 F 08/09/20 02:54 Pulse 73 08/09/20 02:54 Resp 16 08/09/20 02:54 BP 114/73 08/09/20 02:54 Pulse Ox 100 08/09/20 02:54 Body Mass Index 20.0 Const: General: cooperative and no acute distress Orientation/consciousness: patient oriented x3 Eyes: General: appearance normal, both eyes and all related structures Resp: Effort & Inspection: normal respiratory effort and able to speak in complete sentences Auscultation: clear to auscultation bilaterally Cardio: Rate: regular rate Rhythm: regular rhythm GI: Palpation (GI): Soft to palpation Auscultation: normal bowel sounds Skin: General skin exam: no rashes or lesions noted Neuro: Other: No neurological deficits General: patient oriented x3 Cognition (Neuro): normal cognition Extrem: General: Yes normal to inspection and Yes no pedal edema Results Labs CBC and Chem 7: 08/08/20 20:30 08/08/20 20:30 Labs: Laboratory Results - last 24 hr 08/08/20 08/08/20 08/08/20 20:30 20:30 20:30 MCV 90.9 MCH 29.5 MCHC 32.4 RDW 13.9 Plt Count 200 MPV 10.0 Immature Gran % (Auto) 0.3 Neut % (Auto) 74.4 H Lymph % (Auto) 14.6 L [place] % (Auto) 10.2 Eos % (Auto) 0.3 Baso % (Auto) 0.2 Lymph # (Auto) 1.5 [place] # (Auto) 1.0 Eos # (Auto) 0.0 Baso # (Auto) 0.0 Abs Immat Gran (auto) 0.03 Absolute Neuts (auto) 7.5 Absolute Nucleated RBC 0.000 Nucleated RBC % (auto) 0.0 PT 13.2 H INR 1.1 APTT 34.4 Hold Blue Top SEE NOTE Anion Gap 11 L Estim Creat Clear Calc 51.7 Estimated GFR > 60 Random Glucose 106 Calcium 8.3 L Total Bilirubin 0.3 AST 24 ALT 20 Alkaline Phosphatase 85 Troponin I High Sens Total Protein 6.5 Albumin 3.6 Stool Occult Blood Coronavirus (PCR) Influenza Type A (PCR) Influenza Type B (PCR) RSV RNA Qual (PCR) Blood Type Antibody Screen Crossmatch 08/08/20 08/08/20 08/08/20 20:30 21:37 21:44 MCV MCH MCHC RDW Plt Count MPV Immature Gran % (Auto) Neut % (Auto) Lymph % (Auto) [place] % (Auto) Eos % (Auto) Baso % (Auto) Lymph # (Auto) [place] # (Auto) Eos # (Auto) Baso # (Auto) Abs Immat Gran (auto) Absolute Neuts (auto) Absolute Nucleated RBC Nucleated RBC % (auto) PT INR APTT Hold Blue Top Anion Gap Estim Creat Clear Calc Estimated GFR Random Glucose Calcium Total Bilirubin AST ALT Alkaline Phosphatase Troponin I High Sens 8.5 Total Protein Albumin Stool Occult Blood POS Coronavirus (PCR) Influenza Type A (PCR) Influenza Type B (PCR) RSV RNA Qual (PCR) Blood Type A Positive Antibody Screen NEGATIVE Crossmatch See Detail 08/08/20 23:40 MCV MCH MCHC RDW Plt Count MPV Immature Gran % (Auto) Neut % (Auto) Lymph % (Auto) [place] % (Auto) Eos % (Auto) Baso % (Auto) Lymph # (Auto) [place] # (Auto) Eos # (Auto) Baso # (Auto) Abs Immat Gran (auto) Absolute Neuts (auto) Absolute Nucleated RBC Nucleated RBC % (auto) PT INR APTT Hold Blue Top Anion Gap Estim Creat Clear Calc Estimated GFR Random Glucose Calcium Total Bilirubin AST ALT Alkaline Phosphatase Troponin I High Sens Total Protein Albumin Stool Occult Blood Coronavirus (PCR) NEGATIVE Influenza Type A (PCR) NEGATIVE Influenza Type B (PCR) NEGATIVE RSV RNA Qual (PCR) NEGATIVE Blood Type Antibody Screen Crossmatch Assessment and Plan (1) GI (gastrointestinal bleed): Qualifiers: GI bleed type/associated pathology: unspecified gastrointestinal hemorrhage type Qualified Code(s): K92.2 - Gastrointestinal hemorrhage, unspecified Status: Acute (2) Anemia: Qualifiers: Anemia type: other cause Other causes of anemia: other cause, not classified Qualified Code(s): D64.89 - Other specified anemias Status: Acute (3) Bladder cancer: Qualifiers: Bladder location: unspecified site Qualified Code(s): C67.9 - Malignant neoplasm of bladder, unspecified Status: Acute (4) Prostate cancer: Status: Acute (5) Melanotic stools: Status: Acute 80-year-old male with past medical history of bladder as well as prostate cancer as above who presents to the hospital with weight loss, melanotic stool and found to have acute anemia # melanotic stool - most likely secondary to GI bleed upper versus lower unclear at this time - reports colonoscopy in the past with no significant abnormality, unable to tell me when exactly had his last colonoscopy - has had significant weight loss, has history of bladder as well as prostate cancer - hemoglobin dropped from 11 in June to 8 today Plan: -will keep NPO - consult GI with possible endoscopy in a.m. - PPI 40 IV b.i.d. # acute anemia - patient hemoglobin dropped from 11 in June to 8.1 today - patient is symptomatic with dizziness, fall with no loss of consciousness - has melanotic stool as well as positive stool occult blood Plan: - receiving 1 unit of PRBC in the ED - will monitor for GI bleed - follow H&H daily unless acute bleed occurs - NPO - Ferretin, B12 and folic acid - GI consultation as above # significant weight loss - possible underlying malignancy - will need dietary supplementation # fall - possibly secondary to orthostatic hypotension in the setting of anemia - will consult PT DVT prophylaxis: SCDs
--- NOTE | 2020-08-09 09:00 | PC.NURSE ---
pt ate 75% of breakfast.
[2020-08-09 09:26] LABS: Hematocrit 26.2 % (42-52); Hemoglobin 8.6 g/dl (14.0-18.0); Mean Corpuscular HGB Conc 32.8 g/dl (31.0-36.0); Mean Corpuscular Hemoglobin 29.5 pg (27.0-33.0); Mean Corpuscular Volume 89.7 fL (80-98); Mean Platelet Volume 9.4 fL (9.4-12.4); Platelet Count 165 X10*3/uL (160-400); Red Blood Count 2.92 X10*6/uL (4.60-5.80); Red Cell Distribution Width 14.1 % (11.0-16.0)
--- NOTE | 2020-08-09 12:50 | PC.NURSE ---
pt seen by dr. malik pt aware of plan of care for admission to hosp.
--- NOTE | 2020-08-09 13:01 | HO.PM.IMPN ---
Subjective Subjective Date of Service: 08/09/20 Interval History: Seen in f/u for anemia, gib, unintentional weight loss. ROS; no active bleed, no fever, no sob Physical Exam Vital Signs: Vital Signs: Last Vital Signs Temp 98.7 F 08/09/20 07:41 Pulse 67 08/09/20 11:41 Resp 17 08/09/20 11:41 BP 110/71 08/09/20 11:41 Pulse Ox 98 08/09/20 10:07 Body Mass Index 20.0 General: AO X 3, no acute distress Resp: normal resp effor CVS: S1,S2,RRR GI: +BS, NT, no distention Skin: No rash Neuro: motor grossly intact Psych: appropriate affect Objective Data Current Medications Generic Name Dose Route Start Last Admin Trade Name Freq PRN Reason Stop Dose Admin Pharmacy Consult 1 each 08/08/20 23:39 Consult Rx Perform Med Rec MISCELLANE ONCE PRN Consult order Labs CBC & Chem 7: 08/09/20 09:19 08/08/20 20:30 Assessment and Plan (1) GI (gastrointestinal bleed): Status: Acute (2) Anemia: Status: Acute (3) Bladder cancer: Status: Acute (4) Prostate cancer: Status: Acute (5) Melanotic stools: Status: Acute Assessment and Plan: 80-year-old male with past medical history of bladder as well as prostate cancer as above who presents to the hospital with weight loss, melanotic stool and found to have acute anemia # melanotic stool #Acute blood loss anemia - most likely secondary to GI bleed upper versus lower unclear at this time - reports colonoscopy in the past with no significant abnormality, unable to tell me when exactly had his last colonoscopy - has had significant weight loss, has history of bladder as well as prostate cancer - hemoglobin dropped from 11 in June to 8 today Plan: - consult GI with possible endoscopy in a.m. - PPI 40 IV b.i.d. -Transfusion -Iron study, b12, folate # significant weight loss - possible underlying malignancy - will need dietary supplementation # fall - possibly secondary to orthostatic hypotension in the setting of anemia - will consult PT DVT prophylaxis: SCDs
--- NOTE | 2020-08-09 13:51 | PC.NURSE ---
NURSE TO NURSE GIVEN TO ANIL NOONAN).
[2020-08-09 16:19] LABS: Basophils Percent Auto 0.5 % (0-2); Eosinophils Absolute Auto 0.1 X10*3/uL (0.0-0.4); Eosinophils Percent Auto 1.5 % (0-4); Hematocrit 26.5 % (42-52); Hemoglobin 8.6 g/dl (14.0-18.0); Imm Gran Abs Auto 0.03 X10*3/uL (0.00-0.03); Imm Gran Pct Auto 0.5 % (0.0-0.4); Lymphocytes Absolute Auto 1.4 X10*3/uL (1.2-4.9); Lymphocytes Percent Auto 20.7 % (20-40); MANUAL DIFF FLAG NO; Mean Corpuscular HGB Conc 32.5 g/dl (31.0-36.0); Mean Corpuscular Hemoglobin 29.2 pg (27.0-33.0); Mean Corpuscular Volume 89.8 fL (80-98); Mean Platelet Volume 9.4 fL (9.4-12.4); Monocytes Absolute Auto 0.8 X10*3/uL (0.1-1.2); Neutrophils Absolute Auto 4.3 X10*3/uL (2.0-8.3); Neutrophils Percent Auto 64.8 % (45-73); Platelet Count 173 X10*3/uL (160-400); Red Blood Count 2.95 X10*6/uL (4.60-5.80); Red Cell Distribution Width 14.2 % (11.0-16.0); White Blood Count 6.7 X10*3/uL (4.8-10.8)
[2020-08-09 16:46] LABS: Anion Gap 11 (12-20); Blood Urea Nitrogen 22 mg/dL (9-16); Carbon Dioxide 23 mmol/L (22-29); Chloride 107 mmol/L (96-108); Creatinine Clr Calc Pharmacy 57.8; Estimated Glomerular Filt Rate > 60; Glucose Random 61 mg/dL (60-115); Potassium 3.9 mmol/l (3.3-5.1); Sodium 137 mmol/L (135-145)
[2020-08-09] MEDS: 0.9 % Sodium Chloride Flush 3 ML SYRINGE IVFLUSH ×2 (16:56→20:55)
[2020-08-09] MEDS: Pantoprazole Sodium 40 MG/10 ML VIAL IVPUSH (16:56)
[2020-08-10] VITALS (11 sets, daily range): BP systolic 95–159; BP diastolic 46–105; PULSE 55–78; RESP 15–19; TEMP 36.6–37.2; O2SAT 95–100; BMI 23.3
[2020-08-10] MEDS: Pantoprazole Sodium 40 MG/10 ML VIAL IVPUSH ×2 (06:22→16:01)
[2020-08-10] MEDS: 0.9 % Sodium Chloride Flush 3 ML SYRINGE IVFLUSH ×3 (07:23→21:14)
[2020-08-10 07:39] LABS: Hematocrit 28.2 % (42-52); Mean Corpuscular HGB Conc 31.9 g/dl (31.0-36.0); Mean Corpuscular Hemoglobin 28.9 pg (27.0-33.0); Mean Corpuscular Volume 90.7 fL (80-98); Mean Platelet Volume 9.5 fL (9.4-12.4); Platelet Count 179 X10*3/uL (160-400); Red Blood Count 3.11 X10*6/uL (4.60-5.80); Red Cell Distribution Width 14.1 % (11.0-16.0); White Blood Count 5.6 X10*3/uL (4.8-10.8)
--- NOTE | 2020-08-10 12:26 | P.CNGI_ITS ---
History of Present Illness Data of Consult Service Date: 08/10/20 Requesting physician: [facility] Primary Care Provider: Tiana Newman MD HPI Reason for consult: anemia, melena 80-year-old male with past medical history of prostate cancer currently status post TURP who I am seeing for assessment for acute blood loss anemia and melena He presented with generalized weakness, weight loss, loss of appetite, for last few weeks coinciding with 2 weeks of dark , black stools for 2 weeks. He also complaining of losing weight over 30 lb in the past 1 month. He denied abdominal pain, no nausea or vomiting, no urinary symptoms. He has not been taking NSAID or blood thinners.Denies any tobacco alcohol or illicit drugs He said last colonoscopy at [facility] and normal, also had EGD many years before with small ulcers, he can;t recall reasons for having the EGD or exact time, but it was a long while back Review of Systems Review of Systems: Constitutional : + Weight loss, No Fever, No Chills ENT/Mouth : No sore throat, No Rhinorrhea Eyes: No Eye Pain, No Swelling Cardiovascular : No Chest Pain, no Dyspnea on Exertion, No Orthopnea, No Edema, No Palpitations, no SOB Respiratory : No Cough, No Sputum Gastrointestinal : no Nausea, No Vomiting, No Diarrhea, No abdominal Pain, No Hematochezia, Genitourinary : No Dysuria, No Urinary Frequency Musculoskeletal : No joint pain, No Myalgias, No Joint Swelling Skin : No Skin Lesions, No rash Neuro : +Weakness, No Numbness, + Dizziness, No Headache Psych : No Anxiety/Panic, No Depression Heme/Lymph: No Bruising, No Lymphadenopathy Endocrine : No Polyuria, No Polydipsia All other systems reviewed and are negative Yes all other systems are reviewed and are negative [facility], [facility] Past Medical History Medical History Constipation Disc herniation Nasal sinus polyp Prostate cancer Syncope Surgical History Surgical History History of back surgery History of left hip replacement Hx of tonsillectomy Social History Social History Household Members: None Housing: Apartment Are you a primary hospice care sales consultant to a significant other at home: No Do you presently have visiting nurse or other home services: No Alcohol intake: never Smoking Status: Former smoker Smoked in Last 30 Days: No Smoking Quit Date: 07/1983 Patient Interested in Nicotine Replacement: No Patient Given Instructions on How to Stop Smoking: No Second Hand Smoke Exposure: No Use of substances other than those prescribed or required for medical reasons: No Currently Displaying Signs/Symptoms of Drug Intoxication Withdrawal: No Have you been hit, kicked, punched, or otherwise hurt by someone within the past year? If so, by whom?: No Do you feel safe in your current relationship?: No Current Relationship Is there a partner from a previous relationship who is making you feel unsafe now?: No Are you made to feel afraid or neglected: No Spiritual Healthcare Practices: no Mandaen Healthcare Practices: no Cultural Healthcare Practices: no Advance Directives: Yes Advance Directives Information Provided: No (declined) Advance Directives on File: No (declined) Advance Directives Date on File: 08/09/20 Do you have thoughts of harming others: None Do you have a plan to hurt others: No Plan Recently lost weight without trying: Yes Meds Allergies Allergy/AdvReac Type Severity Reaction Status Date / Time No Known Allergies Allergy Verified 07/25/20 11:37 [No Known Allergies*] Home Medications Medication Instructions Recorded Confirmed Type tamsulosin 0.4 mg PO Q OTHER DAY 08/08/20 08/09/20 History calcium carbonate [Calcium 500] 500 mg PO DAILY 08/09/20 08/09/20 History multivitamin 1 tab PO DAILY 08/09/20 08/09/20 History Physical Exam Vital Signs: Vital Signs: Last Vital Signs Temp 99 F 08/10/20 12:08 Pulse 61 08/10/20 12:08 Resp 16 08/10/20 12:08 BP 122/54 L 08/10/20 12:08 Pulse Ox 100 08/10/20 12:08 Body Mass Index 23.3 Const: General: cooperative and no acute distress Orientation/consciousness: patient oriented x3 Limitations: No language barrier Eyes: General: appearance normal, both eyes and all related structures Resp: Effort & Inspection: normal respiratory effort and able to speak in complete sentences Auscultation: clear to auscultation bilaterally Cardio: Rate: regular rate Rhythm: regular rhythm GI: Palpation (GI): Soft to palpation Auscultation: normal bowel sounds Skin: General skin exam: no rashes or lesions noted Neuro: Other: No neurological deficits General: patient oriented x3 Cognition (Neuro): normal cognition Extrem: General: Yes normal to inspection and Yes no pedal edema Results Labs CBC & Chem 7: 08/10/20 07:29 08/09/20 16:08 Labs: Short CBC 08/09/20 08/10/20 Range/Units 16:08 07:29 WBC 6.7 5.6 (4.8-10.8) X10*3/uL Hgb 8.6 L 9.0 L (14.0-18.0) g/dl Hct 26.5 L 28.2 L (42-52) % Plt Count 173 179 (160-400) X10*3/uL BMP 08/09/20 16:08 Sodium 137 Potassium 3.9 Chloride 107 Carbon Dioxide 23 BUN 22 H Creatinine 0.93 Calcium 8.0 L Assessment and Plan (1) GI (gastrointestinal bleed): Qualifiers: GI bleed type/associated pathology: unspecified gastrointestinal hemorrhage type Qualified Code(s): K92.2 - Gastrointestinal hemorrhage, unspecified Status: Acute (2) Complaint of melena: Status: Acute 1/ Acute blood loss anemia, could be recurrence of peptic ulcer disease as in past,DDX: gastritis, esophagtiis, dieulafoy, neoplasia, AVm PLAN: 1/ NPO, EGD today 2/ cont with PPI 3/ transfuse and am for HGB 9 g/dl
--- NOTE | 2020-08-10 12:51 | MHC.SHP ---
Pre-Procedural Eval Section A The patient is an INPATIENT: Yes The History & Physical has been completed within 30 days and I have reviewed it.: Yes Section B Chief Complaint: GI Bleed Allergies: Allergies Allergy/AdvReac Type Severity Reaction Status Date / Time No Known Allergies Allergy Verified 07/25/20 11:37 [No Known Allergies*] Plan Diagnosis/Plan: Unchanged I have reviewed the history and physical and performed a pertinent physical examination on my patient. No changes have occurred unless specified.
--- NOTE | 2020-08-10 12:51 | PM.OP ---
Brief Operative Note Date of Service: 08/10/20 Pre-op diagnosis: anemia, Post-op diagnosis: same Procedure: Procedure Description: EGD FLEXIBLE TRANSORAL UPPER GASTROINTESTINAL ENDOSCOPY UPPER ENDOSCOPY Consent: Indications for the procedure and potential complications of bleeding, perforation, reaction to medications and missed diagnosis were discussed with the patient and informed consent was obtained. Instrument: Olympus GIF H 190 J mid size upper endoscope Monitoring: Vital signs and clinical assessment, continuous EKG monitoring, Pulse oximetry, Carbon Dioxide monitoring and blood pressure monitoring were done throughout the procedure. Procedure: The patient was placed in the left lateral decubitis position and pre-procedure medications were administered and a bite block was placed. The endoscope was inserted into the mouth and advanced under direct vision to the third part of duodenum. A careful inspection was made as the upper endoscope was withdrawn including a retroflexed examination of the proximal stomach; Findings and interventions are described below. Findings: Larynx:normal Esophagus: GE junction at 30 cm, upper gastric fold at 39 cm, diaphragm hiatus at 43 cm consisent with 4 cm hiatal hernia. There was also a 10 mm crateriform ulcer lesion in distal esophagus at around 34-35 cm with surrounding induration and erythema, friability, bx to r/o neoplasia, CMV or HSV. It was papa grade III with no visible vessel. 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 Stomach: Patchy gastric erythema. Biopsies were obtained. Hill Grade III flap valve on retroflexed examination of the cardia. Duodenum: Mild duodenitis, bx taken Intervention: Biopsies as noted above Impression/Findings: esophageal ulcer barretts hiatal hernia PLAN: high dose PPI e.g pantoprazole 40 mg bid as well as carafate 1 g BID check HIV reflux precautions repeat EGD in 4 weeks with [place] protocol biopsies and WATS 3D avoid nsaids Surgeon: Mimi Tate MD Anesthesia: MAC Estimated blood loss (mL): 0 Condition: stable Disposition: PACU
--- NOTE | 2020-08-10 13:15 | P.PNIM_ITS ---
Subjective Subjective Date of Service: 08/10/20 Interval History: Patient seen and examined at bedside ROS; no active bleed, no fever, no sob Physical Exam Vital Signs: Vital Signs: Last Vital Signs Temp 99 F 08/10/20 12:08 Pulse 61 08/10/20 12:08 Resp 16 08/10/20 12:08 BP 122/54 L 08/10/20 12:08 Pulse Ox 100 08/10/20 12:08 Body Mass Index 23.3 Const: General: cooperative and no acute distress Orientation/consciousness: patient oriented x3 Eyes: General: appearance normal, both eyes and all related structures Resp: Effort & Inspection: normal respiratory effort and able to speak in complete sentences Auscultation: clear to auscultation bilaterally Cardio: Rate: regular rate Rhythm: regular rhythm GI: Palpation (GI): Soft to palpation Auscultation: normal bowel sounds Skin: General skin exam: no rashes or lesions noted Neuro: Other: No neurological deficits General: patient oriented x3 Cognition (Neuro): normal cognition Extrem: General: Yes normal to inspection and Yes no pedal edema Objective Data Current Medications Generic Name Dose Route Start Last Admin Trade Name Freq PRN Reason Stop Dose Admin Acetaminophen 650 mg 08/09/20 15:56 Acetaminophen 325 Mg Tablet PO Q6H PRN Pain, Mild (Pain Scale 1-3) Docusate Sodium 100 mg 08/09/20 15:56 Docusate Sodium 100 Mg Capsule PO DAILY PRN Constipation Ondansetron HCl 4 mg 08/09/20 15:56 Ondansetron Hcl 4 Mg/2 Ml Vial IVPUSH Q8H PRN Nausea and Vomiting Pantoprazole Sodium 40 mg 08/09/20 15:56 08/10/20 06:22 Pantoprazole Sodium 40 Mg/10 Ml Vial IVPUSH 40 mg BID@[id number],8660 [facility] Administration Pharmacy Consult 1 each 08/08/20 23:39 Consult Rx Perform Med Rec MISCELLANE ONCE PRN Consult order Sodium Chloride 3 ml 08/09/20 15:56 08/10/20 07:23 0.9 % Sodium Chloride Flush 3 Ml Syringe IVFLUSH 3 ml QSHIFT [facility] Administration Labs CBC & Chem 7: 08/10/20 07:29 08/09/20 16:08 Assessment and Plan (1) GI (gastrointestinal bleed): Status: Acute (2) Anemia: Status: Acute (3) Bladder cancer: Status: Acute (4) Prostate cancer: Status: Acute (5) Melanotic stools: Status: Acute Assessment and Plan: 80-year-old male with past medical history of bladder cancer as well as prostate cancer as above who presents to the hospital with weight loss, melanotic stool and found to have acute anemia Acute GI bleed Acute blood loss anemia status post 1 unit of PRBCs hemoglobin improved from 8-9 continue PPI 40 IV b.i.d. monitor H&H seen by gastroenterology plan for EGD today Significant weight loss with history of bladder and prostate cancer continue diet supplementation s/p fall - possibly secondary to orthostatic hypotension in the setting of anemia PT consult DVT prophylaxis: SCDs
[2020-08-10] MEDS: Sucralfate Oral Suspension 1 GM/10 ML ORAL.SUSP PO ×2 (16:01→21:13)
--- NOTE | 2020-08-10 16:08 | MHC.CM.PN ---
CM met with pt who reports he lives alone and has no family left other than distant cousins who live in [place]. He reports he did complete a HCP years ago when he lived in [place] naming his good friend as his agent. Pt reports he does not have any services at home although he would be interested in some since he has been so ill he has been unable to clean his apartment. CM discussed a referral to [facility] and pt requested one be sent. Pt reports he does have a cane and walker at home but uses a walking stick when he goes outside. 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 Pt confirms his PCP is Tiana Newman in [place]. He reports that is where he lived before selling his home but he does not plan to change to a closer PCP, he has tried to in the past and had a bad experience. Pts current DC plan is home with a referral to [facility] for a home care assessment. Pt does drive however he does not have his car with him and will need transportation arranged.
[2020-08-11 03:38] VITALS: BP 111/56; PULSE 63; RESP 18; TEMP 36.9; O2SAT 99
[2020-08-11 06:00] VITALS: BMI 23.3
[2020-08-11] MEDS: Pantoprazole Sodium 40 MG/10 ML VIAL IVPUSH (06:10)
[2020-08-11 06:31] LABS: MANUAL DIFF FLAG NO
[2020-08-11 06:57] LABS: Basophils Percent Auto 0.3 % (0-2); Eosinophils Absolute Auto 0.2 X10*3/uL (0.0-0.4); Eosinophils Percent Auto 2.6 % (0-4); Hematocrit 27.4 % (42-52); Hemoglobin 8.8 g/dl (14.0-18.0); Imm Gran Abs Auto 0.02 X10*3/uL (0.00-0.03); Imm Gran Pct Auto 0.3 % (0.0-0.4); Lymphocytes Absolute Auto 1.6 X10*3/uL (1.2-4.9); Lymphocytes Percent Auto 25.4 % (20-40); Mean Corpuscular HGB Conc 32.1 g/dl (31.0-36.0); Mean Corpuscular Hemoglobin 29.1 pg (27.0-33.0); Mean Corpuscular Volume 90.7 fL (80-98); Monocytes Absolute Auto 0.6 X10*3/uL (0.1-1.2); Monocytes Percent Auto 9.2 % (2-11); Neutrophils Absolute Auto 3.9 X10*3/uL (2.0-8.3); Neutrophils Percent Auto 62.2 % (45-73); Platelet Count 177 X10*3/uL (160-400); Red Blood Count 3.02 X10*6/uL (4.60-5.80); White Blood Count 6.2 X10*3/uL (4.8-10.8)
[2020-08-11 08:00] VITALS: BP 116/54; PULSE 55; RESP 16; TEMP 36.4; O2SAT 100
[2020-08-11] MEDS: 0.9 % Sodium Chloride Flush 3 ML SYRINGE IVFLUSH (08:28)
[2020-08-11] MEDS: Sucralfate Oral Suspension 1 GM/10 ML ORAL.SUSP PO ×2 (08:28→11:47)
[2020-08-11] MEDS: Sodium Ferric Gluconat/Sucrose 125 MG in 0.9 % Sodium Chloride 100 ML 100 MG IV (11:46)
[2020-08-11 12:00] VITALS: BP 127/56; PULSE 67; RESP 18; TEMP 36.3; O2SAT 100
--- NOTE | 2020-08-11 12:44 | P.DS_ITS ---
DS: Providers Provider Date of admission: 08/08/20 23:52 Primary care physician: Tiana Newman MD Consults: 08/09/20 15:56 Consult to Gastroenterology Routine Consulting Provider: Jn Enrique Reason for consultation: GI bleed Has provider been notified: No DS: Diagnosis Discharge Diagnosis (1) GI (gastrointestinal bleed): Status: Acute (2) Anemia: Status: Acute (3) Bladder cancer: Status: Acute (4) Prostate cancer: Status: Acute (5) Melanotic stools: Status: Acute DS: Medications Discharge Medications Home Medications: Home Medications Medication Instructions Recorded Confirmed tamsulosin 0.4 mg PO Q OTHER DAY 08/08/20 08/09/20 calcium carbonate [Calcium 500] 500 mg PO DAILY 08/09/20 08/09/20 multivitamin 1 tab PO DAILY 08/09/20 08/09/20 Previous Rx's Medication Instructions Recorded ferrous sulfate 325 mg PO BID #60 tab 08/11/20 omeprazole 40 mg PO BID #60 cap 08/11/20 sucralfate 1 g PO BID #60 ml 08/11/20 DS: Summary Hospital Course Hospital Course: HPI 80-year-old male with past medical history of prostate cancer currently not under any treatment, bladder scan sirs status post TURP who presents to the hospital with complaints of generalized weakness, weight loss, loss of appetite. Patient reports that for the past 3-4 weeks has been feeling generally weak, he had 1 episode of dizziness for he fell without loss of conscious, palpitations, no hitting his head, no chest pain, no change in vision. He also complaining of losing weight over 30 lb in the past 1 month, reports loss of appetite and not eating as well as he used to. Denies any bloating, abdominal distension does ED, he also noticed black stools for the past 1-2 weeks, no bright red blood per rectum. Of note patient was here 3 weeks ago and was seen in the ED for back pain that has now improved with chiropractor and physical therapy. No abdominal pain, no nausea or vomiting, no urinary symptoms and no lower extremity edema. No numbness or tingling, no headache or change in vision. On arrival to the ED hemodynamically stable with no significant abnormal vitals Labs are significant for WBC count of 10.1, hemoglobin of 8.1 which was 11.5 on 07/12/20, hematocrit of 25, CMP significant for a sodium of 136, potassium of 4.3, BUN of 33 with a creatinine of 1.04, has stool occult positive, Of note patient had a BMI of 23 on his previous presentation to the ED in June and is now 20.1( unable to find exact weight from june) Patient will be admitted for evaluation of acute anemia hospital course 80-year-old male admitted with acute GI bleed hemoglobin was around 8 on admission with baseline around 10, patient was started on PPI, patient received 1 unit of PRBCs, gastroenterology was consulted, patient underwent EGD , EGD shows esophageal ulcernon bleeding , biopsies were taken , GI recommended continue high-dose PPI 40 b.i.d. and Carafate, for patient was tolerating regular diet, repeat hemoglobin was around 8.8, patient received 1 dose of IV iron , patient was stable, discharged home on a PPI and Carafate, and ferrous sulfate, patient will follow up Dr. wilbert U[facility] as outpatient for repeat egd in 4-6 weeks , patient will need repeat CBC in 1 week Time Spent with Patient Time attestation: Total time spent providing and/or coordinating discharge services: Physical Exam Vital Signs: Vital Signs: Last Vital Signs Temp 97.3 F 08/11/20 12:00 Pulse 67 08/11/20 12:00 Resp 18 08/11/20 12:00 BP 127/56 L 08/11/20 12:00 Pulse Ox 100 08/11/20 12:00 Body Mass Index 23.3 DS: Data Data Completed and Pending Pending studies at discharge: Pending at discharge 08/10/20 13:09 Surgical [PTH] Routine Labs on day of discharge: 08/08/20 20:30 Complete Blood Count Auto Diff Stat Comprehensive Met. Panel Stat Hold Lt Blue - Possible Coag Stat Partial Thromboplastin Time Stat Prothrombin Time INR Stat Troponin-I High Sensitivity Stat 08/08/20 21:34 Pantoprazole Sodium [Protonix] 80 mg IVPUSH ONCE ONE 08/08/20 21:37 OBSX1 Stat 08/08/20 21:44 Red Blood Cells Stat Type and Screen Stat 08/08/20 21:53 Add Laboratory Test Stat 08/08/20 23:40 SARS-CoV2/FLU/RSV Stat 08/08/20 23:49 Transfer Order Routine 08/09/20 09:19 Complete Blood Count no Diff Stat 08/09/20 Breakfast NPO Diet Regular Diet 08/09/20 14:49 Cont. Telemetry w/Vital Sign limit Q4HR 08/09/20 15:56 Pulse Oximetry Q4HR 08/09/20 16:08 Basic Metabolic Panel Routine Complete Blood Count Auto Diff Routine 08/10/20 07:29 Complete Blood Count no Diff Routine 08/10/20 12:40 Lidocaine HCl 2 % MPF [Xylocaine 2 % MPF] 5 ml .ROUTE .STK-MED ONE propofoL [Diprivan] 200 mg IVPUSH .STK-MED ONE 08/11/20 06:21 Complete Blood Count Auto Diff Routine 08/11/20 10:59 Sodium Ferric Gluconat/Sucrose [Ferrlecit] 125 mg 0.9 % Sodium Chloride [Ns] 100 ml IV ONCE Laboratory Last Values WBC 6.2 X10*3/uL (4.8-10.8) 08/11/20 06:21 RBC 3.02 X10*6/uL (4.60-5.80) L 08/11/20 06:21 Hgb 8.8 g/dl (14.0-18.0) L 08/11/20 06:21 Hct 27.4 % (42-52) L 08/11/20 06:21 MCV 90.7 fL (80-98) 08/11/20 06:21 MCH 29.1 pg (27.0-33.0) 08/11/20 06:21 MCHC 32.1 g/dl (31.0-36.0) 08/11/20 06:21 RDW 14.0 % (11.0-16.0) 08/11/20 06:21 Plt Count 177 X10*3/uL (160-400) 08/11/20 06:21 MPV 10.0 fL (9.4-12.4) 08/11/20 06:21 Immature Gran % (Auto) 0.3 % (0.0-0.4) 08/11/20 06:21 Neut % (Auto) 62.2 % (45-73) 08/11/20 06:21 Lymph % (Auto) 25.4 % (20-40) 08/11/20 06:21 Reynolds % (Auto) 9.2 % (2-11) 08/11/20 06:21 Eos % (Auto) 2.6 % (0-4) 08/11/20 06:21 Baso % (Auto) 0.3 % (0-2) 08/11/20 06:21 Lymph # (Auto) 1.6 X10*3/uL (1.2-4.9) 08/11/20 06:21 Reynolds # (Auto) 0.6 X10*3/uL (0.1-1.2) 08/11/20 06:21 Eos # (Auto) 0.2 X10*3/uL (0.0-0.4) 08/11/20 06:21 Baso # (Auto) 0.0 X10*3/uL (0.0-0.2) 08/11/20 06:21 Abs Immat Gran (auto) 0.02 X10*3/uL (0.00-0.03) 08/11/20 06:21 Absolute Neuts (auto) 3.9 X10*3/uL (2.0-8.3) 08/11/20 06:21 Absolute Nucleated RBC 0.000 X10*3/uL (0.0-0.012) 08/11/20 06:21 Nucleated RBC % (auto) 0.0 /100WBC (0.0-0.2) 08/11/20 06:21 PT 13.2 SEC (10.8-13.0) H 08/08/20 20:30 INR 1.1 (0.9-1.1) 08/08/20 20:30 APTT 34.4 SEC (24.1-38.0) 08/08/20 20:30 Hold Blue Top SEE NOTE 08/08/20 20:30 Sodium 137 mmol/L (135-145) 08/09/20 16:08 Potassium 3.9 mmol/l (3.3-5.1) 08/09/20 16:08 Chloride 107 mmol/L (96-108) 08/09/20 16:08 Carbon Dioxide 23 mmol/L (22-29) 08/09/20 16:08 Anion Gap 11 (12-20) L 08/09/20 16:08 BUN 22 mg/dL (9-16) H 08/09/20 16:08 Creatinine 0.93 mg/dL (0.5-1.4) 08/09/20 16:08 Estim Creat Clear Calc 57.8 08/09/20 16:08 Estimated GFR > 60 08/09/20 16:08 Random Glucose 61 mg/dL (60-115) D 08/09/20 16:08 Calcium 8.0 mg/dL (8.4-10.2) L 08/09/20 16:08 Total Bilirubin 0.3 mg/dL (0.0-1.0) 08/08/20 20:30 AST 24 U/L (5-37) 08/08/20 20:30 ALT 20 U/L (0-40) 08/08/20 20:30 Alkaline Phosphatase 85 U/L (39-117) 08/08/20 20:30 Troponin I High Sens 8.5 ng/L (<3.5-35.0) 08/08/20 20:30 Total Protein 6.5 g/dL (6.5-8.0) 08/08/20 20:30 Albumin 3.6 g/dL (3.5-5.0) 08/08/20 20:30 Stool Occult Blood POS (NEG) 08/08/20 21:37 Coronavirus (PCR) NEGATIVE (Negative) 08/08/20 23:40 Influenza Type A (PCR) NEGATIVE (Negative) 08/08/20 23:40 Influenza Type B (PCR) NEGATIVE (Negative) 08/08/20 23:40 RSV RNA Qual (PCR) NEGATIVE (Negative) 08/08/20 23:40 Blood Type A Positive 08/08/20 21:44 Antibody Screen NEGATIVE 08/08/20 21:44 Crossmatch See Detail 08/08/20 21:44 Discharge Plan Discharge Anticipated Discharge Date/Time: 08/11/20 11:00 Patient Disposition: Home, Self-Care Referrals: Mimi Tate MD [Physician] - Baltazar Elliott MD [Physician] - Tiana Newman MD [Primary Care Provider] - Discharge Medications: New sucralfate 100 mg/mL Suspension 1 g PO BID Qty: 60 RF: 0 omeprazole 40 mg capsule,delayed release(DR/EC) 40 mg PO BID Qty: 60 RF: 0 ferrous sulfate 325 mg (65 mg iron) tablet 325 mg PO BID Qty: 60 RF: 0 Continued tamsulosin 0.4 mg capsule 0.4 mg PO Q OTHER DAY RF: 0 multivitamin Tablet 1 tab PO DAILY RF: 0 calcium carbonate [Calcium 500] 500 mg calcium (1,250 mg) Tablet 500 mg PO DAILY RF: 0 Discharge Orders: Discharge Order (Routine); Ordered 08/11/20 Ordered By: Baltazar Elliott Diet: advance to usual diet Activity on Discharge: As tolerated Other Ambulatory Orders: Complete Blood Count Auto Diff (Routine) Timeframe: 20200821 Facility: [facility] - Location: Laboratory Ordered By: Baltazar Elliott Visit Report Forms: Patient Portal Discharge page Care Plan Goals: treat anemia Health Concerns: gi bleed anemia Plan of Treatment: see above
--- NOTE | 2020-08-11 17:34 | HO.POSTANES ---
Post Anesthesia Evaluation Post Anesthesia Evaluation Vital Signs: Vital Signs Temp Pulse Resp BP Pulse Ox 08/11/20 12:00 97.3 F 67 18 127/56 L 100 08/11/20 08:00 97.5 F 55 16 116/54 L 100 Anesthesia: Monitored Mental Status: Awake Pain Control: Satisfactory Nausea/Vomiting: None Hydration: Adequate Anesthesia-Related Issues: No Anes. Related Issues
[2020-08-14 04:09] LABS: HIV AB/AG Nonreactive (Nonreactive); HIV Num 1 0.12 S/CO (0.00-0.99)
== END 2020-08-11 14:40 | disposition home or self-care (01) | DRG 381 ==
LOC: HO.ED 23:40 → HO.IMC 08-09 13:31 → HO.S3 08-09 14:04
PROVIDERS: Internal Medicine; Internal Medicine Gastroenterology; Admitting Provider Internal Medicine; Emergency Provider Internal Medicine; PCP Internal Medicine; Visit Provider Internal Medicine
PROC: 0DJ08ZZ Inspection of Upper Intestinal Tract, Via Natural or Artificial Opening Endoscopic (ICD-10-PCS; CPT 43235; principal; 2020-08-10 13:00)
DX: K22.11 Ulcer of esophagus with bleeding (principal); D62 Acute posthemorrhagic anemia; K22.70 Barrett's esophagus without dysplasia; I95.1 Orthostatic hypotension; C61 Malignant neoplasm of prostate; K44.9 Diaphragmatic hernia without obstruction or gangrene; R63.4 Abnormal weight loss; Z68.23 Body mass index [BMI] 23.0-23.9, adult; C67.9 Malignant neoplasm of bladder, unspecified; Z96.642 Presence of left artificial hip joint; Z20.828 Contact with and (suspected) exposure to other viral communicable diseases; Z79.899 Other long term (current) drug therapy
CPT/HCPCS: 0241U; 36415; 36430; 80048; 80053; 82272; 84484; 85025; 85027; 85610; 85730; 86850; 86900; 86901; 86920; 86923; 87389; 88305; 88342; 96374; 97110; 97116; 97162; 99285; J2916; P9016

== ENCOUNTER 2020-08-13 10:25 | Emergency (ER) | payer MEDICARE, SELFPAY ==
[2020-08-13 10:37] VITALS: BP 132/60; PULSE 82; RESP 20; TEMP 36.6; O2SAT 96; BMI 21.5
--- NOTE | 2020-08-13 12:25 | ED.GENADULT ---
HPI - General Adult General Chief complaint: General Medical Stated complaint: lump in arm Time Seen by Provider: 08/13/20 12:14 Source: patient Mode of arrival: ambulatory Limitations: no limitations History of Present Illness HPI narrative: 80 y/o male with history prostate cancer s/p TURP with recent admission for GI bleed and failure to thrive presents back 2 days after discharge with a tender reddened area in arm where a PIV was in place. He states it has been worsening since he got home. He denies numbness, tingling, difficulty bending his elbow, fever, chills. complaint: arm pain Onset (ago): day(s) (2-3) Location: left and upper extremity Radiation: non-radiation Severity: moderate Quality: aching Pain Consistency: intermittent Relieving factors: none Exacerbating factors: movement Associated symptoms: denies other symptoms Treatments prior to arrival: none Related Data Home Medications Medication Instructions Recorded Confirmed tamsulosin 0.4 mg PO Q OTHER DAY 08/08/20 08/09/20 calcium carbonate [Calcium 500] 500 mg PO DAILY 08/09/20 08/09/20 multivitamin 1 tab PO DAILY 08/09/20 08/09/20 Previous Rx's Medication Instructions Recorded ferrous sulfate 325 mg PO BID #60 tab 08/11/20 omeprazole 40 mg PO BID #60 cap 08/11/20 sucralfate 1 g PO BID #60 ml 08/11/20 cephalexin [Keflex] 500 mg PO QID 5 Days #20 cap 08/13/20 Allergies Allergy/AdvReac Type Severity Reaction Status Date / Time No Known Allergies Allergy Verified 07/25/20 11:37 [No Known Allergies*] Review of Systems Review of Systems: Constitutional: No Fever, No Chills Cardiovascular: No Chest Pain, No SOB No Edema Respiratory: No Cough, No Sputum, Gastrointestinal: No Nausea, No Vomiting, No Diarrhea, No abdominal Pain Musculoskeletal: + joint pain, No Myalgias Skin: + Skin Lesions, + rash Neuro: No Weakness, No Numbness, No Dizziness, No Headache Psych: Anxiety/Panic, No Depression Heme/Lymph: No Bruising PMFSH Past Medical History Medical History Constipation Disc herniation Nasal sinus polyp Prostate cancer Syncope Surgical History History of back surgery History of left hip replacement Hx of tonsillectomy Social History Social History Household Members: None Housing: Apartment Alcohol intake: never Smoking Status: Former smoker Second Hand Smoke Exposure: No Advance Directives: Yes Advance Directives on File: Yes Advance Directives Date on File: 08/09/20 service: No Current occupational status: retired Physical Exam Vital Signs: Vital Signs: Last Vital Signs Temp 97.9 F 08/13/20 10:37 Pulse 82 08/13/20 10:37 Resp 20 08/13/20 10:37 BP 132/60 08/13/20 10:37 Pulse Ox 96 08/13/20 10:37 Body Mass Index 21.5 Appearance: Alert. Oriented X3. No acute distress. HEENT: normal inspection CVS: Normal heart rate and rhythm. Pulses normal. Respiratory: No respiratory distress. Skin: Skin warm and dry. Normal skin color. Normal skin turgor. No rashes. Extremities: left AC area tender, erythematous with palpable superficial cord Neuro: Oriented X 3. No motor deficit. No sensory deficit. Course Course Course Narrative: 80 y/o male presenting with LUE redness and tenderness after PIV removal consistent with superficial thrombophlebitis. It is warm and erythematous so will also treat for possible evolving cellulitis. Doubt UE DVT. Patient counseled on management. Critical Care Time Critical Care Time Critical Care Time: No Discharge Plan Discharge Clinical Impression: Superficial thrombophlebitis Qualifiers: Superficial thrombophlebitis-Involved body area: upper extremity Laterality: left Qualified Code(s): I80.8 - Phlebitis and thrombophlebitis of other sites Patient Disposition: Home, Self-Care Instructions: Superficial Thrombophlebitis (ED) Additional Instructions: Use warm compresses to the area several times per day. Elevate your arm when possible. Take the prescribed antibiotics for possible skin infection. Follow up with your doctor this week. If redness, swelling or tenderness gets worse despite the above interventions call your doctor right away or come back to the ER for further evaluation. Prescriptions: New cephalexin [Keflex] 500 mg capsule 500 mg PO QID 5 Days Qty: 20 RF: 0 No Action tamsulosin 0.4 mg capsule 0.4 mg PO Q OTHER DAY RF: 0 multivitamin Tablet 1 tab PO DAILY RF: 0 calcium carbonate [Calcium 500] 500 mg calcium (1,250 mg) Tablet 500 mg PO DAILY RF: 0 sucralfate 100 mg/mL Suspension 1 g PO BID Qty: 60 RF: 0 omeprazole 40 mg capsule,delayed release(DR/EC) 40 mg PO BID Qty: 60 RF: 0 ferrous sulfate 325 mg (65 mg iron) tablet 325 mg PO BID Qty: 60 RF: 0
== END 2020-08-13 12:54 | disposition home or self-care (01) ==
PROVIDERS: Emergency Provider Emergency Medicine Emergency Medical Services; PCP Internal Medicine
DX: I80.8 Phlebitis and thrombophlebitis of other sites (principal); M79.602 Pain in left arm; Z79.899 Other long term (current) drug therapy
CPT/HCPCS: 99283

== ENCOUNTER 2020-08-21 11:11 | Outpatient (REF) | payer MEDICARE, SELFPAY ==
[2020-08-21 11:53] LABS: MANUAL DIFF FLAG NO
[2020-08-21 11:55] LABS: Basophils Percent Auto 0.6 % (0-2); Eosinophils Absolute Auto 0.1 X10*3/uL (0.0-0.4); Eosinophils Percent Auto 1.8 % (0-4); Hemoglobin 9.1 g/dl (14.0-18.0); Imm Gran Abs Auto 0.01 X10*3/uL (0.00-0.03); Imm Gran Pct Auto 0.2 % (0.0-0.4); Lymphocytes Absolute Auto 1.2 X10*3/uL (1.2-4.9); Lymphocytes Percent Auto 24.3 % (20-40); Mean Corpuscular HGB Conc 31.4 g/dl (31.0-36.0); Mean Corpuscular Hemoglobin 29.2 pg (27.0-33.0); Mean Corpuscular Volume 92.9 fL (80-98); Mean Platelet Volume 9.7 fL (9.4-12.4); Monocytes Absolute Auto 0.5 X10*3/uL (0.1-1.2); Monocytes Percent Auto 9.6 % (2-11); Neutrophils Absolute Auto 3.2 X10*3/uL (2.0-8.3); Neutrophils Percent Auto 63.5 % (45-73); Platelet Count 218 X10*3/uL (160-400); Red Blood Count 3.12 X10*6/uL (4.60-5.80); Red Cell Distribution Width 14.5 % (11.0-16.0)
== END 2020-08-21 11:12 | disposition home or self-care (01) ==
LOC: HO.LAB 11:11
PROVIDERS: PCP Internal Medicine; Visit Provider Internal Medicine
DX: D64.9 Anemia, unspecified (principal)
CPT/HCPCS: 36415; 85025

== ENCOUNTER 2020-09-11 09:06 | Day surgery (SDC) | payer MEDICARE, SELFPAY ==
[2020-09-05 13:05] VITALS: BMI 24.3
--- NOTE | 2020-09-08 08:27 | HO.ANESPROP2 ---
Documented by User: Jane Miranda 09/08/20 08:28 HPI - Anesthesia Eval Consult details Narrative: 80yo M for Upper Endoscopy with ferrell 3D s/p EGD with MAC 08/10/20 [facility], [facility] Past Medical History Medical History Constipation Disc herniation Nasal sinus polyp Prostate cancer Syncope Surgical History Surgical History History of back surgery History of esophagogastroduodenoscopy (EGD) History of left hip replacement Hx of tonsillectomy Social History Social History Household Members: None Housing: Apartment Alcohol intake: never Smoking Status: Former smoker Tobacco Type: Cigarette Cigarettes Per Day: 10 Years Smoked: 25 Smoked in Last 30 Days: No Smoking Quit Date: 1982 Patient Interested in Nicotine Replacement: No Second Hand Smoke Exposure: No Use of substances other than those prescribed or required for medical reasons: No Advance Directives: No Advance Directives Information Provided: No Advance Directives Date on File: 08/09/20 Recently lost weight without trying: Yes service: No Current occupational status: retired [employer] Allergies Allergy/AdvReac Type Severity Reaction Status Date / Time No Known Allergies Allergy Verified 07/25/20 11:37 [No Known Allergies*] Home Medications Medication Instructions Recorded Confirmed Type tamsulosin 0.4 mg PO Q OTHER DAY 08/08/20 09/05/20 History calcium carbonate [Calcium 500] 500 mg PO DAILY 08/09/20 09/05/20 History multivitamin 1 tab PO DAILY 08/09/20 09/05/20 History Exam Exam Date and Time: September 08, 2020 0827 Height,Weight and Vital Signs: Height 5 ft 10 in Weight 77.111 kg Pertinent Lab Results Pertinent Lab Results: Laboratory Tests 08/09/20 08/21/20 16:08 11:38 WBC 5.0 Hgb 9.1 L Hct 29.0 L Plt Count 218 Sodium 137 Potassium 3.9 Chloride 107 Carbon Dioxide 23 BUN 22 H Creatinine 0.93 Assessment and Plan Assessment Anesthesia Assessment: Chart Reviewed Documented by User: Nikkie Delgado 09/11/20 10:59 PMFSH Past Medical History Medical History Constipation Disc herniation Nasal sinus polyp Prostate cancer Syncope Surgical History Surgical History History of back surgery History of esophagogastroduodenoscopy (EGD) History of left hip replacement Hx of tonsillectomy Social History Social History Household Members: None Housing: Apartment Alcohol intake: never Smoking Status: Former smoker Tobacco Type: Cigarette Cigarettes Per Day: 10 Years Smoked: 25 Smoked in Last 30 Days: No Smoking Quit Date: 1982 Patient Interested in Nicotine Replacement: No Second Hand Smoke Exposure: No Use of substances other than those prescribed or required for medical reasons: No Advance Directives: No Advance Directives Information Provided: No Advance Directives Date on File: 08/09/20 Recently lost weight without trying: Yes service: No Current occupational status: retired Meds Allergies Allergy/AdvReac Type Severity Reaction Status Date / Time No Known Allergies Allergy Verified 07/25/20 11:37 [No Known Allergies*] Home Medications Medication Instructions Recorded Confirmed Type tamsulosin 0.4 mg PO Q OTHER DAY 08/08/20 09/05/20 History calcium carbonate [Calcium 500] 500 mg PO DAILY 08/09/20 09/05/20 History multivitamin 1 tab PO DAILY 08/09/20 09/05/20 History Exam Airway Mallampati Class: II TM Dist: >3cm Neck ROM: Full Partial: Lower
--- NOTE | 2020-09-11 09:14 | MHC.SHP ---
Pre-Procedural Eval Section B Chief Complaint: gi bleed Details of Present Illness: hx of long segment barretts with ulceration, to check for recovery and healing, bx Relevant Family History (Specify if Yes): No Relevant Social History: None Present Medications: see Short Stay Collaborative assessment Medical History: Significant History (Constipation Disc herniation Nasal sinus polyp Prostate cancer Syncope) History of Previous Operations: Relevant previous surgery/procedure and date(s) (hip and back surgery, tonsilectomy) Allergies: Allergies Allergy/AdvReac Type Severity Reaction Status Date / Time No Known Allergies Allergy Verified 07/25/20 11:37 [No Known Allergies*] Review of Systems Sugical H&P ROS: Negative: Constitution, Cardiovascular, Respiratory, Neurological, Psychiatric, Hem-Onc, Allergic/Immunologic, Gastrointestinal, Genitourinary, Musculoskeletal, Integumentary, Endocrine and Eyes/Ears/Nose/Throat Exam Surgical H&P Exam: Normal: HEENT, Normal: Heart, Normal: Lungs, Normal: Extremities, Normal: Abdomen, Normal: Skin and Normal: Neurological Plan Diagnosis/Plan: Unchanged I have reviewed the history and physical and performed a pertinent physical examination on my patient. No changes have occurred unless specified.
--- NOTE | 2020-09-11 09:15 | PM.OP ---
Brief Operative Note Date of Service: 09/11/20 Pre-op diagnosis: barretts, esophageal ulceration Post-op diagnosis: same Procedure: see op note Surgeon: Mimi Tate MD Anesthesia: MAC Estimated blood loss (mL): 0 Condition: stable Disposition: PACU
--- NOTE | 2020-09-11 09:16 | W.PM.OPN ---
Operative Note Operative Note Date of Service: 09/11/20 Narrative: Procedure Description: EGD FLEXIBLE TRANSORAL UPPER GASTROINTESTINAL ENDOSCOPY UPPER ENDOSCOPY Consent: Indications for the procedure and potential complications of bleeding, perforation, reaction to medications and missed diagnosis were discussed with the patient and informed consent was obtained. Instrument: Olympus GIF H 190 J mid size upper endoscope Monitoring: Vital signs and clinical assessment, continuous EKG monitoring, Pulse oximetry, Carbon Dioxide monitoring and blood pressure monitoring were done throughout the procedure. Procedure: The patient was placed in the left lateral decubitis position and pre-procedure medications were administered and a bite block was placed. The endoscope was inserted into the mouth and advanced under direct vision to the third part of duodenum. A careful inspection was made as the upper endoscope was withdrawn including a retroflexed examination of the proximal stomach; Findings and interventions are described below. Larynx:normal Esophagus: GE junction at 30 cm, upper gastric fold at 39 cm, diaphragm hiatus at 43 cm consisent with 4 cm hiatal hernia. There was also a 10 mm crateriform ulcer lesion in distal esophagus at around 34-35 cm with surrounding induration and erythema, friability, bx to r/o neoplasia, CMV or HSV. It was papa grade III with no visible vessel. There was salmon pink tissue consistent with Barretts esophagus, Spreck[place] criteria C9M0. Stomach: Patchy gastric erythema. Biopsies were obtained. Hill Grade III flap valve on retroflexed examination of the cardia. Duodenum: Mild duodenitis, bx taken Findings: Larynx:normal Esophagus: GE junction at 38 cm, diaphragm hiatus at 38 cm, no varices or esophagitis. Stomach: Patchy gastric erythema. Biopsies were obtained. Grade 2 flap valve on retroflexed examination of the cardia. Duodenum: Normal bulb and descending duodenum, bx taken Intervention: Biopsies as noted above Impression/Findings: [] PLAN: []
[2020-09-11] MEDS: Lactated Ringers 1,000 ML 100 ML IVCONT ×2 (10:22→10:50)
[2020-09-11 10:37] VITALS: BP 137/57; PULSE 57; RESP 20; TEMP 36.2; BMI 22.2
--- NOTE | 2020-09-11 10:57 | MHC.SHP ---
Pre-Procedural Eval Section B Chief Complaint: gi bleed Relevant Family History (Specify if Yes): No Relevant Social History: None Present Medications: see Short Stay Collaborative assessment Medical History: Significant History (Constipation Disc herniation Nasal sinus polyp Prostate cancer Syncope) History of Previous Operations: Relevant previous surgery/procedure and date(s) (History of back surgery History of esophagogastroduodenoscopy (EGD) History of left hip replacement Hx of tonsillectomy) Allergies: Allergies Allergy/AdvReac Type Severity Reaction Status Date / Time No Known Allergies Allergy Verified 07/25/20 11:37 [No Known Allergies*] Review of Systems Sugical H&P ROS: Negative: Constitution, Cardiovascular, Respiratory, Neurological, Psychiatric, Hem-Onc, Allergic/Immunologic, Gastrointestinal, Genitourinary, Musculoskeletal, Integumentary, Endocrine and Eyes/Ears/Nose/Throat Exam Surgical H&P Exam: Normal: HEENT, Normal: Heart, Normal: Lungs, Normal: Extremities, Normal: Abdomen, Normal: Skin and Normal: Neurological Plan Diagnosis/Plan: Unchanged I have reviewed the history and physical and performed a pertinent physical examination on my patient. No changes have occurred unless specified.
[2020-09-11 12:10] VITALS: BP 92/43; PULSE 64; RESP 16; TEMP 36.1; O2SAT 100
--- NOTE | 2020-09-11 12:11 | PM.OP ---
Brief Operative Note Date of Service: 09/11/20 Pre-op diagnosis: barretts esophagus Post-op diagnosis: same Procedure: see op note Surgeon: Mimi Tate MD Anesthesia: MAC Estimated blood loss (mL): 0 Condition: stable Disposition: PACU
--- NOTE | 2020-09-11 12:11 | W.PM.OPN ---
Operative Note Operative Note Date of Service: 09/11/20 Narrative: Procedure Description: EGD FLEXIBLE TRANSORAL UPPER GASTROINTESTINAL ENDOSCOPY UPPER ENDOSCOPY Consent: Indications for the procedure and potential complications of bleeding, perforation, reaction to medications and missed diagnosis were discussed with the patient and informed consent was obtained. Instrument: Olympus GIF H 190 J mid size upper endoscope Monitoring: Vital signs and clinical assessment, continuous EKG monitoring, Pulse oximetry, Carbon Dioxide monitoring and blood pressure monitoring were done throughout the procedure. Procedure: The patient was placed in the left lateral decubitis position and pre-procedure medications were administered and a bite block was placed. The endoscope was inserted into the mouth and advanced under direct vision to the third part of duodenum. A careful inspection was made as the upper endoscope was withdrawn including a retroflexed examination of the proximal stomach; Findings and interventions are described below. Findings: Larynx:normal Esophagus: Diaphragm hiatus at 42 cm and top of gastric folds at 39 cm consistent with 3 cm sliding hiatal hernia, salmon pink mucosa consistent with Barretts mucosa noted, extending to 25 cm ([place] classification C14, M0). No focal nodular abnormality seen on blue light. Healed ulcer with scar tissue noted at around 35 cm . WATS 3 D brushings were taken (x 3 sets due to long length). Bx then taken every 1-2 cm per [place] protocol. Stomach: Patchy mild gastric erythema. Grade 3 flap valve on retroflexed examination of the cardia. Duodenum: Normal bulb and descending duodenum, Intervention: Biopsies and brushings as noted above Impression/Findings: Hiatal hernia barretts esophagus healed ulcer PLAN: Patient automatically titrated down PPI, can cont with once daily PPI as doing repeat EGD pending results, if no dysplasia then repeat in 12 months or so. reflux precautions
[2020-09-11 12:26] VITALS: BP 137/46; PULSE 62; RESP 16; TEMP 36.1; O2SAT 99
[2020-09-11 12:35] VITALS: BP 126/63; PULSE 60; RESP 16; TEMP 36.1; O2SAT 100
== END 2020-09-11 13:11 | disposition home or self-care (01) ==
PROVIDERS: PCP Internal Medicine; Visit Provider Internal Medicine Gastroenterology
PROC: 0DJ08ZZ Inspection of Upper Intestinal Tract, Via Natural or Artificial Opening Endoscopic (ICD-10-PCS; CPT 43235; principal; 2020-09-11 09:20)
DX: K92.2 Gastrointestinal hemorrhage, unspecified (principal); K22.70 Barrett's esophagus without dysplasia; K44.9 Diaphragmatic hernia without obstruction or gangrene; K31.7 Polyp of stomach and duodenum; Z85.46 Personal history of malignant neoplasm of prostate; Z79.899 Other long term (current) drug therapy; Z96.642 Presence of left artificial hip joint; Z87.891 Personal history of nicotine dependence
CPT/HCPCS: 43239; 88305

== ENCOUNTER → 2020-09-27 13:32 | Outpatient (BNVA) | payer MEDICARE, SELFPAY | PROVIDERS: PCP Internal Medicine; Visit Provider Urology | DX: Z13.9 Encounter for screening, unspecified (principal); N40.1 Benign prostatic hyperplasia with lower urinary tract symptoms; N13.8 Other obstructive and reflux uropathy; R39.14 Feeling of incomplete bladder emptying | CPT/HCPCS: 99212 ==

== ENCOUNTER → 2021-01-02 13:31 | Outpatient (BNVA) | payer MEDICARE, SELFPAY | PROVIDERS: PCP Internal Medicine; Visit Provider Internal Medicine Gastroenterology | DX: K22.70 Barrett's esophagus without dysplasia (principal) | CPT/HCPCS: 99212 ==

== ENCOUNTER 2021-02-01 09:45 | Day surgery (SDC) | payer MEDICARE, SELFPAY ==
[2021-01-26 14:30] VITALS: BMI 22.8
--- NOTE | 2021-01-30 12:59 | P.CONAN_ITS ---
Documented by User: Jane Avalosney 01/30/21 13:00 HPI - Anesthesia Eval Consult details Narrative: 80yo M for Upper Endoscopy with APC s/p EGD WATS 08/2020 with MAC [facility] Active Problems Active Problems: All Active Problems (Updated 01/02/21 @ 23:49 by Mimi Tate MD) Trejo esophagus (Acute) Complicated urinary tract infection (Acute) Bladder cancer (Acute) Incomplete emptying of bladder due to benign prostatic hyperplasia (Acute) Anemia (Acute) Prostate cancer (Acute) Past Medical History Medical History Constipation Disc herniation Nasal sinus polyp Prostate cancer Syncope Surgical History Surgical History History of back surgery History of esophagogastroduodenoscopy (EGD) History of left hip replacement Hx of tonsillectomy Social History Social History Household Members: None Housing: Apartment Are you a primary healthcare market consultant to a significant other at home: No Do you presently have visiting nurse or other home services: No Alcohol intake: never Patient Tobacco Use Status: Never used Tobacco Cigarettes Per Day: 10 Years Smoked: 25 Second Hand Smoke Exposure: No Have you been hit, kicked, punched, or otherwise hurt by someone within the past year? If so, by whom?: No Are you DNR?: No Advance Directives: No Advance Directives Information Provided: Yes Advance Directives Date on File: 08/09/20 Nutrition Risks: No Nutritional Risk service: No Current occupational status: retired [employer] Allergies Allergy/AdvReac Type Severity Reaction Status Date / Time No Known Allergies Allergy Verified 01/02/21 13:40 [No Known Allergies*] Home Medications Medication Instructions Recorded Confirmed Last Taken Type tamsulosin 0.4 mg PO Q OTHER DAY 08/08/20 09/05/20 08/07/20 History calcium carbonate [Calcium 500] 500 mg PO DAILY 08/09/20 09/05/20 1 Day Ago History ~08/08/20 multivitamin 1 tab PO DAILY 08/09/20 09/05/20 1 Day Ago History ~08/08/20 Exam Exam Date and Time: January 30, 2021 1259 Height,Weight and Vital Signs: Height 5 ft 10 in Weight 72.121 kg Assessment and Plan Assessment Anesthesia Assessment: Chart Reviewed Documented by User: Isidro Donnelly MD 02/01/21 10:03 [facility] Past Medical History Medical History Constipation Disc herniation Nasal sinus polyp Prostate cancer Syncope Surgical History Surgical History History of back surgery History of esophagogastroduodenoscopy (EGD) History of left hip replacement Hx of tonsillectomy Social History Social History Household Members: None Housing: Apartment Are you a primary healthcare market consultant to a significant other at home: No Do you presently have visiting nurse or other home services: No Alcohol intake: never Patient Tobacco Use Status: Never used Tobacco Cigarettes Per Day: 10 Years Smoked: 25 Second Hand Smoke Exposure: No Have you been hit, kicked, punched, or otherwise hurt by someone within the past year? If so, by whom?: No Are you DNR?: No Advance Directives: No Advance Directives Information Provided: Yes Advance Directives Date on File: 08/09/20 Nutrition Risks: No Nutritional Risk service: No Current occupational status: retired Meds Allergies Allergy/AdvReac Type Severity Reaction Status Date / Time No Known Allergies Allergy Verified 01/02/21 13:40 [No Known Allergies*] Home Medications Medication Instructions Recorded Confirmed Last Taken Type tamsulosin 0.4 mg PO Q OTHER DAY 08/08/20 09/05/20 08/07/20 History calcium carbonate [Calcium 500] 500 mg PO DAILY 08/09/20 09/05/20 1 Day Ago History ~08/08/20 multivitamin 1 tab PO DAILY 08/09/20 09/05/20 1 Day Ago History ~08/08/20 Exam Airway Mallampati Class: II TM Dist: >3cm Neck ROM: Full Partial: Upper and Lower Loose/Missing/Broken Teeth: No Heart: RRR Assessment and Plan Assessment Anesthesia Assessment: Anesthesia Plan Discussed and Chart Reviewed Final Anesthetic Review NPO: Yes ASA Class: III Final Preanesthetic Review: No Changes in Pt Med Stat, Meds/Allgs Chart Reviewed, Consent Obtained/Reviewed and Anes Risks/Benef Reviewed Patient Risk: Intermediate Procedure Risk: Low Anesthetic Plan Anesthetic Plan: MAC: Disposition: Standard PACU
[2021-02-01 10:01] VITALS: BP 164/62; PULSE 64; RESP 18; TEMP 36.6; O2SAT 98
[2021-02-01] MEDS: Lactated Ringers 1,000 ML 100 ML IVCONT (10:12)
--- NOTE | 2021-02-01 11:18 | MHC.SHP ---
Pre-Procedural Eval Section B Chief Complaint: french's esophagus Relevant Family History (Specify if Yes): No Relevant Social History: Tobacco Use Present Medications: see Short Stay Collaborative assessment Medical History: Significant History (Constipation Disc herniation Nasal sinus polyp Prostate cancer Syncope) History of Previous Operations: Relevant previous surgery/procedure and date(s) (History of back surgery History of esophagogastroduodenoscopy (EGD) History of left hip replacement Hx of tonsillectomy) Allergies: Allergies Allergy/AdvReac Type Severity Reaction Status Date / Time No Known Allergies Allergy Verified 01/02/21 13:40 [No Known Allergies*] Review of Systems Sugical H&P ROS: Negative: Constitution, Cardiovascular, Respiratory, Neurological, Psychiatric, Hem-Onc, Allergic/Immunologic, Gastrointestinal, Genitourinary, Musculoskeletal, Integumentary, Endocrine and Eyes/Ears/Nose/Throat Exam Surgical H&P Exam: Normal: HEENT, Normal: Heart, Normal: Lungs, Normal: Extremities, Normal: Abdomen, Normal: Skin and Normal: Neurological Plan Diagnosis/Plan: Unchanged I have reviewed the history and physical and performed a pertinent physical examination on my patient. No changes have occurred unless specified.
--- NOTE | 2021-02-01 12:59 | PM.OP ---
Brief Operative Note Date of Service: 02/01/21 Pre-op diagnosis: barretts with LGD Post-op diagnosis: same Procedure: see op note Surgeon: Mimi Tate MD Anesthesia: MAC Was an Adjuster Electrical Contacts used for this Procedure?: No Estimated blood loss (mL): 0 Condition: stable Disposition: PACU
[2021-02-01 13:00] VITALS: BP 133/70; PULSE 77; RESP 12; TEMP 36.6; O2SAT 96
--- NOTE | 2021-02-01 13:00 | W.PM.OPN ---
Operative Note Operative Note Date of Service: 02/01/21 Narrative: FLEXIBLE TRANSORAL UPPER GASTROINTESTINAL ENDOSCOPY UPPER ENDOSCOPY Consent: Indications for the procedure and potential complications of bleeding, perforation, reaction to medications and missed diagnosis were discussed with the patient and informed consent was obtained. Instrument: Olympus GIF H 190 J mid size upper endoscope Monitoring: Vital signs and clinical assessment, continuous EKG monitoring, Pulse oximetry, Carbon Dioxide monitoring and blood pressure monitoring were done throughout the procedure. Procedure: The patient was placed in the left lateral decubitis position and pre-procedure medications were administered and a bite block was placed. The endoscope was inserted into the mouth and advanced under direct vision to the third part of duodenum. A careful inspection was made as the upper endoscope was withdrawn including a retroflexed examination of the proximal stomach; Findings and interventions are described below. Findings: Larynx:normal Esophagus: Diaphragm hiatus at 41 cm and top of gastric folds at 37 cm consistent with 4 cm sliding hiatal hernia, salmon pink mucosa consistent with Barretts mucosa noted, extending to 25 cm ([place] classification C11, M12). No focal nodular abnormality seen on blue light. Healed ulcer with scar tissue noted at around 35 cm . WATS 3 D brushings were taken (x 2 sets due to long length). At this point the hybrid APC probe was placed and 5 cm of esophageal tissue in dru circumferential area was ablated using effect 50 and 60 W. There appeared to be good results. Stomach: Normal mucosa. Grade 3 flap valve on retroflexed examination of the cardia. Duodenum: Mild bulbar duodenitis and normal descending duodenum, Intervention: Biopsies and brushings as noted above, hybrid APC ablation of barretts tissue. Impression/Findings: Hiatal hernia barretts esophagus healed ulcer PLAN: Clears today and advance diet to soft tonight magic mouthwash reflux precautions cont with PPI
[2021-02-01] MEDS: Mag&Al/Sim/Diphenhyd/Lidocaine 10 ML ORAL.SUSP PO (13:13)
[2021-02-01 13:15] VITALS: BP 140/67; PULSE 71; RESP 16; TEMP 36.6; O2SAT 99
== END 2021-02-01 13:59 | disposition home or self-care (01) ==
PROVIDERS: PCP Internal Medicine; Visit Provider Internal Medicine Gastroenterology
PROC: 0DJ08ZZ Inspection of Upper Intestinal Tract, Via Natural or Artificial Opening Endoscopic (ICD-10-PCS; CPT 43235; principal; 2021-02-01 09:20)
DX: K22.70 Barrett's esophagus without dysplasia (principal); K29.80 Duodenitis without bleeding; K44.9 Diaphragmatic hernia without obstruction or gangrene; K59.00 Constipation, unspecified; D64.9 Anemia, unspecified; Z79.899 Other long term (current) drug therapy
CPT/HCPCS: 43270; 43239; C2618; J3010

== ENCOUNTER 2021-02-16 13:08 | Outpatient (REF) | payer MEDICARE, SELFPAY ==
[2021-02-16 13:30] LABS: MANUAL DIFF FLAG NO
[2021-02-16 13:36] LABS: Basophils Percent Auto 0.4 % (0-2); Eosinophils Absolute Auto 0.1 X10*3/uL (0.0-0.4); Eosinophils Percent Auto 1.9 % (0-4); Hematocrit 29.9 % (42-52); Hemoglobin 9.6 g/dl (14.0-18.0); Imm Gran Abs Auto 0.03 X10*3/uL (0.00-0.03); Imm Gran Pct Auto 0.4 % (0.0-0.4); Lymphocytes Absolute Auto 1.3 X10*3/uL (1.2-4.9); Lymphocytes Percent Auto 18.3 % (20-40); Mean Corpuscular HGB Conc 32.1 g/dl (31.0-36.0); Mean Corpuscular Hemoglobin 28.2 pg (27.0-33.0); Mean Corpuscular Volume 87.9 fL (80-98); Mean Platelet Volume 9.7 fL (9.4-12.4); Monocytes Absolute Auto 0.7 X10*3/uL (0.1-1.2); Monocytes Percent Auto 9.1 % (2-11); Neutrophils Percent Auto 69.9 % (45-73); Platelet Count 196 X10*3/uL (160-400); Red Cell Distribution Width 15.1 % (11.0-16.0); White Blood Count 7.2 X10*3/uL (4.8-10.8)
[2021-02-16 13:55] LABS: Alanine Aminotransferase 14 U/L (0-40); Alkaline Phosphatase 76 U/L (39-117); Anion Gap 14 (12-20); Aspartate Amino Transferase 25 U/L (5-37); Bilirubin Total 0.4 mg/dL (0.0-1.0); Blood Urea Nitrogen 22 mg/dL (9-16); Carbon Dioxide 21 mmol/L (22-29); Chloride 108 mmol/L (96-108); Estimated Glomerular Filt Rate 57; Glucose Random 107 mg/dL (60-115); Iron 203 mcg/dL (45-160); Percent Iron Saturation 60 % (15-50); Potassium 4.6 mmol/L (3.3-5.1); Sodium 138 mmol/L (135-145); Total Iron Binding Capacity 338 mcg/dL (228-428); Unsaturated Iron Binding 135 ug/dL
[2021-02-16 14:14] LABS: Ferritin 25 ng/mL (20-250)
== END 2021-02-16 13:09 | disposition home or self-care (01) ==
LOC: HO.LAB 13:08
PROVIDERS: PCP Internal Medicine; Visit Provider Internal Medicine Gastroenterology
DX: D64.89 Other specified anemias (principal); K22.70 Barrett's esophagus without dysplasia; K75.81 Nonalcoholic steatohepatitis (NASH)
CPT/HCPCS: 36415; 80053; 82728; 83540; 85025

== ENCOUNTER → 2021-02-20 14:05 | Outpatient (BNVA) | payer MEDICARE, SELFPAY | PROVIDERS: PCP Internal Medicine; Referring Provider Internal Medicine; Visit Provider Internal Medicine Gastroenterology | DX: K22.70 Barrett's esophagus without dysplasia (principal) | CPT/HCPCS: 99212 ==

== ENCOUNTER 2021-03-09 14:45 | Outpatient (REF) | payer MEDICARE, SELFPAY ==
--- NOTE | ~2021-03-09 | XR_ITS ---
EXAMINATION: XR ABDOMEN KUB CLINICAL INDICATION: Constipation COMPARISON: Previous x-ray June [address] June 2020 TECHNIQUE: AP view of the abdomen. FINDINGS: There is stool in colon suggestive of constipation. There are no dilated loops of bowel to suggest obstruction. No calcifications are seen. There are radiation seeds in the prostate gland. There are degenerative changes of the spine and right hip joint. There is a left hip replacement that appears unchanged. There heart T10 and T12 vertebral body compression fractures. XR/XR KUB IMPRESSION: Constipation.
== END 2021-03-09 14:46 | disposition home or self-care (01) ==
LOC: HO.XRAY 14:45
PROVIDERS: Visit Provider Internal Medicine Gastroenterology
DX: K59.00 Constipation, unspecified (principal)
CPT/HCPCS: 74018

== ENCOUNTER 2021-03-21 12:10 | Outpatient (REF) | payer MEDICARE, SELFPAY ==
[2021-03-21 14:12] LABS: Prostate Specific Antigen 0.93 ng/mL (<0.05-4.0)
== END 2021-03-21 12:11 | disposition home or self-care (01) ==
LOC: HO.LAB 12:10
PROVIDERS: PCP Internal Medicine; Visit Provider Urology
DX: N40.1 Benign prostatic hyperplasia with lower urinary tract symptoms (principal); N13.8 Other obstructive and reflux uropathy; R39.14 Feeling of incomplete bladder emptying; Z12.5 Encounter for screening for malignant neoplasm of prostate
CPT/HCPCS: 36415; 84153

== ENCOUNTER → 2021-03-28 13:45 | Outpatient (BNVA) | payer MEDICARE, SELFPAY | PROVIDERS: PCP Internal Medicine; Visit Provider Urology | DX: C67.9 Malignant neoplasm of bladder, unspecified (principal); C61 Malignant neoplasm of prostate | CPT/HCPCS: 99212 ==

== ENCOUNTER → 2021-09-27 11:03 | Outpatient (BNVA) | payer MEDICARE, SELFPAY | PROVIDERS: PCP Internal Medicine; Visit Provider Urology | DX: C67.9 Malignant neoplasm of bladder, unspecified (principal); C61 Malignant neoplasm of prostate | CPT/HCPCS: 52000; 99212 ==

== ENCOUNTER → 2021-10-01 12:10 | Outpatient (BNVA) | payer MEDICARE, SELFPAY | PROVIDERS: PCP Internal Medicine; Visit Provider Internal Medicine Gastroenterology | DX: R53.1 Weakness (principal); R63.4 Abnormal weight loss; K92.1 Melena; R63.0 Anorexia | CPT/HCPCS: 99212 ==

== ENCOUNTER → 2022-04-01 09:51 | Outpatient (BNVA) | payer MEDICARE, SELFPAY | PROVIDERS: PCP Internal Medicine; Visit Provider Internal Medicine Gastroenterology | DX: K22.70 Barrett's esophagus without dysplasia (principal) | CPT/HCPCS: 99212 ==

== ENCOUNTER 2022-04-10 06:17 | Day surgery (SDC) | payer MEDICARE, SELFPAY ==
[2022-04-04 11:36] VITALS: BMI 23.2
--- NOTE | 2022-04-10 06:42 | MHC.SHP ---
Pre-Procedural Eval Section A Date of Service: 04/10/22 The patient is an INPATIENT: No The History & Physical has been completed within 30 days and I have reviewed it.: Yes Section B Chief Complaint: barretts Allergies: Allergies Allergy/AdvReac Type Severity Reaction Status Date / Time No Known Allergies Allergy Verified 04/01/22 10:05 [No Known Allergies*] Plan Diagnosis/Plan: Unchanged I have reviewed the history and physical and performed a pertinent physical examination on my patient. No changes have occurred unless specified.
[2022-04-10 06:49] VITALS: BMI 22.2
[2022-04-10 06:51] VITALS: BP 148/61; PULSE 50; RESP 18; TEMP 36.2; O2SAT 99
--- NOTE | 2022-04-10 07:11 | HO.ANESPROP2 ---
[facility] Active Problems Active Problems: All Active Problems (Updated 03/28/21 @ 14:16 by Dusty Mary MD) Complicated urinary tract infection (Acute) Bladder cancer (Acute) Incomplete emptying of bladder due to benign prostatic hyperplasia (Acute) Anemia (Acute) Trejo esophagus (Acute) Constipation (Acute) Prostate cancer (Acute) Past Medical History Medical History Anemia of chronic disease Bladder tumor BPH loc w urin obs/LUTS Constipation Disc herniation History of bladder cancer Nasal sinus polyp Prostate cancer Syncope Family History Family history of problems with anesthesia: No Surgical History Surgical History H/O colonoscopy History of back surgery History of esophagogastroduodenoscopy (EGD) History of left hip replacement Hx of tonsillectomy Hx of transurethral resection of prostate History of Problems with Anesthesia: No Social History Social History Household Members: None Housing: Apartment Are you a primary geriatric personal care aide to a significant other at home: No Do you presently have visiting nurse or other home services: No Alcohol intake: never Patient Tobacco Use Status: Never used Tobacco Cigarettes Per Day: 10 Years Smoked: 25 Second Hand Smoke Exposure: No Use of substances other than those prescribed or required for medical reasons: No Are you DNR?: Yes Advance Directives: No Advance Directives Information Provided: Yes Advance Directives Date on File: 08/09/20 service: No Current occupational status: retired Meds Allergies Allergy/AdvReac Type Severity Reaction Status Date / Time No Known Allergies Allergy Verified 04/01/22 10:05 [No Known Allergies*] Active Medications: Current Medications Lactated Ringer's (Lr) 1,000 mls @ 50 mls/hr IVCONT .Q20H [facility] Home Medications Medication Instructions Recorded Confirmed Last Taken Type calcium carbonate 500 mg calcium 500 mg PO DAILY 08/09/20 09/05/20 1 Day Ago History (1,250 mg) tablet (Calcium 500) ~08/08/20 multivitamin 1 tab PO DAILY 08/09/20 09/05/20 1 Day Ago History ~08/08/20 Exam Exam Date and Time: April 10, 2022 0711 Height,Weight and Vital Signs: Height 5 ft 10 in Weight 70.307 kg Last Vital Signs Temp 97.2 F 04/10/22 06:51 Pulse 50 04/10/22 06:51 Resp 18 04/10/22 06:51 BP 148/61 H 04/10/22 06:51 Pulse Ox 99 04/10/22 06:51 O2 Del Method 04/10/22 06:51 Airway Mallampati Class: II ([place]rowns front top, perm bridge upper left) TM Dist: >3cm Neck ROM: Full Partial: Lower Heart: rrr Lungs: cta Assessment and Plan Assessment Anesthesia Assessment: Anesthesia Plan Discussed and Chart Reviewed Final Anesthetic Review Family History of Problems with Anesthesia: No History of Problems with Anesthesia: No NPO: Yes ASA Class: III Final Preanesthetic Review: No Changes in Pt Med Stat, Meds/Allgs Chart Reviewed and Consent Obtained/Reviewed Patient Risk: Intermediate Procedure Risk: Intermediate Anesthetic Plan Anesthetic Plan: MAC: Disposition: Standard PACU
[2022-04-10] MEDS: Lactated Ringers 1,000 ML 50 ML IVCONT (07:15)
--- NOTE | 2022-04-10 07:39 | P.OP_ITS ---
Operative Note Operative Note Date of Service: 04/10/22 Narrative: Procedure Description: EGD Indication: Barretts esophagus Anesthesia: MAC FLEXIBLE TRANSORAL UPPER GASTROINTESTINAL ENDOSCOPY UPPER ENDOSCOPY Consent: Indications for the procedure and potential complications of bleeding, perforation, reaction to medications and missed diagnosis were discussed with the patient and informed consent was obtained. Instrument: Olympus GIF H 190 J mid size upper endoscope Monitoring: Vital signs and clinical assessment, continuous EKG monitoring, Pulse oximetry, Carbon Dioxide monitoring and blood pressure monitoring were done throughout the procedure. Procedure: The patient was placed in the left lateral decubitis position and pre-procedure medications were administered and a bite block was placed. The endoscope was inserted into the mouth and advanced under direct vision to the third part of duodenum. A careful inspection was made as the upper endoscope was withdrawn including a retroflexed examination of the proximal stomach; Findings and interventions are described below. Findings: Larynx:normal Esophagus: Diaphragm hiatus at 41 cm and top of gastric folds at 37 cm consistent with 4 cm sliding hiatal hernia, salmon pink mucosa consistent with Barretts mucosa noted, extending to 27 cm ([place] classification C10, M11). No focal nodular abnormality seen on blue light . WATS 3 D brushings were taken (x 2 sets due to long length) as well as bx every 2 cm per [place] protocol Stomach: Normal mucosa. Grade 3 flap valve on retroflexed examination of the cardia. Duodenum: Mild bulbar duodenitis and normal descending duodenum, Intervention: Biopsies and brushings as noted above, Impression/Findings: Hiatal hernia barretts esophagus PLAN: reflux precautions cont with PPI
[2022-04-10 08:09] VITALS: BP 109/54; PULSE 48; RESP 12; TEMP 36.1; O2SAT 99
[2022-04-10 08:24] VITALS: BP 141/66; PULSE 51; RESP 17; O2SAT 99
[2022-04-10 08:36] VITALS: BP 126/61; PULSE 49; RESP 17; TEMP 36.1; O2SAT 98
== END 2022-04-10 09:37 ==
LOC: HO.SSS 06:18
PROVIDERS: PCP Internal Medicine; Visit Provider Internal Medicine Gastroenterology
PROC: 0DJ08ZZ Inspection of Upper Intestinal Tract, Via Natural or Artificial Opening Endoscopic (ICD-10-PCS; CPT 43235; principal; 2022-04-10 07:30)
DX: K22.70 Barrett's esophagus without dysplasia (principal); K44.9 Diaphragmatic hernia without obstruction or gangrene; K29.80 Duodenitis without bleeding; N40.1 Benign prostatic hyperplasia with lower urinary tract symptoms; R39.14 Feeling of incomplete bladder emptying; D64.9 Anemia, unspecified; K59.00 Constipation, unspecified; Z79.899 Other long term (current) drug therapy; Z85.46 Personal history of malignant neoplasm of prostate; Z85.51 Personal history of malignant neoplasm of bladder; Z96.642 Presence of left artificial hip joint
CPT/HCPCS: 43239; 88305

== ENCOUNTER 2022-09-19 11:08 | Outpatient (REF) | payer MEDICARE, SELFPAY ==
[2022-09-19 12:26] LABS: Prostate Specific Antigen 0.29 ng/mL (<0.05-4.0)
== END 2022-09-19 11:09 | disposition home or self-care (01) ==
LOC: HO.LAB 11:08
PROVIDERS: Visit Provider Urology
DX: C61 Malignant neoplasm of prostate (principal)
CPT/HCPCS: 36415; 84153

== ENCOUNTER → 2022-09-26 09:55 | Outpatient (BNVA) | payer MEDICARE, SELFPAY | PROVIDERS: PCP Internal Medicine; Visit Provider Urology | DX: C67.9 Malignant neoplasm of bladder, unspecified (principal); C61 Malignant neoplasm of prostate | CPT/HCPCS: 99212 ==